=== PATIENT | female | born 1955 | race Caucasian/White ===

== ENCOUNTER 2017-10-14 22:13 | Inpatient (IN) | payer OTHER ==
[~2017-10-14] VITALS: Ht 160 cm; Wt 108.5 kg
[2017-10-14 22:27] VITALS: Ht 160 cm; Wt 108.5 kg
[2017-10-15 00:04] LABS: BASOPHIL % 0.4 % (0-2); PLATELET COUNT 295 x10^3mcL (130-400)
[2017-10-15 00:15] LABS: RED CELL DISTRIBUTION WIDTH 16.8 % (11.5-14.5)
[2017-10-15 00:20] LABS: BILIRUBIN TOTAL 0.5 mg/dL (0.20-1.00); CALCIUM 8.5 mg/dL (8.5-10.1); CARBON DIOXIDE 28.2 mmol/L (21-32); POTASSIUM SERUM 5.1 mmol/L (3.5-5.1)
[2017-10-15 00:22] LABS: ALBUMIN 2.9 g/dL (3.4-5.0)
[2017-10-15 00:29] LABS: C REACTIVE PROTEIN 22.2 mg/dL (<=0.9)
[2017-10-15] MEDS ORDERED: SIMVASTATIN10 M1 PO (00:52)
[2017-10-15] MEDS ORDERED: ZOLOFT25 MG PO (00:52)
[2017-10-15] MEDS ORDERED: PRO30 (00:52)
[2017-10-15 01:30] LABS: ERYTHROCYTE SED RATE 89 mm/hr (0-30)
[2017-10-15 01:51] LABS: T3 TOTAL 0.75 ng/mL
[2017-10-15 02:01] LABS: CHOLESTEROL/HDL RATIO 4.3; MAGNESIUM 2.5 mg/dL (1.8-2.4); PHOSPHOROUS 6.5 mg/dL (2.5-4.9)
[2017-10-15 02:06] LABS: FREE T4 1.15 ng/dL (0.76-1.46); T4(THYROXINE) 5.9 ug/dL (4.7-13.3)
[2017-10-15 03:33] VITALS: BP 154/44
[2017-10-15 08:05] LABS: BASOPHIL % 0.4 % (0-2); PLATELET COUNT 283 x10^3mcL (130-400)
[2017-10-15 08:06] LABS: RED CELL DISTRIBUTION WIDTH 16.8 % (11.5-14.5)
[2017-10-15 08:31] LABS: CARBON DIOXIDE 27.2 mmol/L (21-32); MAGNESIUM 2.4 mg/dL (1.8-2.4); PHOSPHOROUS 7.6 mg/dL (2.5-4.9); POTASSIUM SERUM 4.5 mmol/L (3.5-5.1)
[2017-10-15 09:08] LABS: CREATININE SERUM 6.5 mg/dL (0.6-1.0)
[2017-10-15 09:33] VITALS: BP 103/43
[2017-10-15 13:32] VITALS: BP 147/58
[2017-10-15 17:27] VITALS: BP 145/44
[2017-10-15 21:36] VITALS: BP 146/54
[2017-10-16 05:45] VITALS: BP 139/62
[2017-10-16 07:25] LABS: BASOPHIL % 0.5 % (0-2); CALCIUM 8.8 mg/dL (8.5-10.1); CARBON DIOXIDE 25.9 mmol/L (21-32); MAGNESIUM 2.6 mg/dL (1.8-2.4); PLATELET COUNT 293 x10^3mcL (130-400); POTASSIUM SERUM 5.4 mmol/L (3.5-5.1)
[2017-10-16 07:32] LABS: RED CELL DISTRIBUTION WIDTH 17.1 % (11.5-14.5)
[2017-10-16 07:45] LABS: CREATININE SERUM 8.2 mg/dL (0.6-1.0)
[2017-10-16 09:25] VITALS: BP 131/52
[2017-10-16 13:42] VITALS: BP 133/48
[2017-10-16 16:59] VITALS: BP 128/64
[2017-10-16 20:46] VITALS: BP 115/49
[2017-10-17 05:26] VITALS: BP 147/50
[2017-10-17 06:55] LABS: BASOPHIL % 0.6 % (0-2); PLATELET COUNT 313 x10^3mcL (130-400)
[2017-10-17 07:03] LABS: CALCIUM 8.9 mg/dL (8.5-10.1); CARBON DIOXIDE 26.3 mmol/L (21-32); MAGNESIUM 2.1 mg/dL (1.8-2.4); PHOSPHOROUS 6.6 mg/dL (2.5-4.9); POTASSIUM SERUM 4.7 mmol/L (3.5-5.1)
[2017-10-17 07:05] LABS: RED CELL DISTRIBUTION WIDTH 17.1 % (11.5-14.5)
[2017-10-17 07:06] LABS: CREATININE SERUM 6.3 mg/dL (0.6-1.0)
[2017-10-17 08:41] VITALS: BP 144/53
[2017-10-17 12:40] VITALS: BP 104/61; BP 134/47
[2017-10-17 17:13] VITALS: BP 160/55
[2017-10-17 20:40] VITALS: BP 152/49
[2017-10-18 05:05] VITALS: BP 148/52
[2017-10-18 06:39] LABS: BASOPHIL % 0.6 % (0-2); PLATELET COUNT 297 x10^3mcL (130-400)
[2017-10-18 06:49] LABS: CALCIUM 8.8 mg/dL (8.5-10.1); CARBON DIOXIDE 23.8 mmol/L (21-32); MAGNESIUM 2.2 mg/dL (1.8-2.4); PHOSPHOROUS 8.6 mg/dL (2.5-4.9); POTASSIUM SERUM 5.1 mmol/L (3.5-5.1)
[2017-10-18 06:52] LABS: CREATININE SERUM 7.7 mg/dL (0.6-1.0)
[2017-10-18 07:08] LABS: RED CELL DISTRIBUTION WIDTH 16.6 % (11.5-14.5)
[2017-10-18 09:20] VITALS: BP 136/60
[2017-10-18 13:33] VITALS: BP 169/46
[2017-10-18 17:13] VITALS: BP 155/44
[2017-10-18 20:20] VITALS: BP 153/54
[2017-10-18 22:00] VITALS: BP 168/57
[2017-10-19 05:57] VITALS: BP 163/55
[2017-10-19 06:50] LABS: BASOPHIL % 0.7 % (0-2); PLATELET COUNT 288 x10^3mcL (130-400)
[2017-10-19 07:00] LABS: RED CELL DISTRIBUTION WIDTH 16.7 % (11.5-14.5)
[2017-10-19 07:30] LABS: BILIRUBIN TOTAL 0.4 mg/dL (0.20-1.00); CALCIUM 7.8 mg/dL (8.5-10.1); CARBON DIOXIDE 18.2 mmol/L (21-32); MAGNESIUM 2.4 mg/dL (1.8-2.4); TOTAL PROTEIN, SERUM 6.4 g/dL (6.4-8.2)
[2017-10-19 07:57] LABS: ALBUMIN 2.5 g/dL (3.4-5.0)
[2017-10-19 07:58] LABS: CREATININE SERUM 9.7 mg/dL (0.6-1.0); POTASSIUM SERUM 6.1 mmol/L (3.5-5.1)
[2017-10-19 09:35] VITALS: BP 159/48
[2017-10-19 13:13] VITALS: BP 122/43
[2017-10-19 16:05] VITALS: BP 170/51
[2017-10-19 19:45] VITALS: BP 139/43
[2017-10-20 05:50] VITALS: BP 150/47
[2017-10-20 06:30] LABS: BASOPHIL % 0.5 % (0-2); PLATELET COUNT 273 x10^3mcL (130-400)
[2017-10-20 06:35] LABS: RED CELL DISTRIBUTION WIDTH 16.5 % (11.5-14.5)
[2017-10-20 06:37] LABS: BILIRUBIN TOTAL 0.47 mg/dL (0.20-1.00); CALCIUM 8.6 mg/dL (8.5-10.1); CARBON DIOXIDE 29.4 mmol/L (21-32); PHOSPHOROUS 7.5 mg/dL (2.5-4.9); POTASSIUM SERUM 5.3 mmol/L (3.5-5.1); TOTAL PROTEIN, SERUM 6.9 g/dL (6.4-8.2)
[2017-10-20 06:41] LABS: ALBUMIN 2.3 g/dL (3.4-5.0)
[2017-10-20 10:37] VITALS: BP 183/48
[2017-10-20] MEDS ORDERED: LAC PO (12:52)
[2017-10-20] MEDS ORDERED: COL100 PO (12:53)
[2017-10-20] MEDS ORDERED: SERTRALINE50 M1 PO (12:54)
[2017-10-20] MEDS ORDERED: TYL325 PO (12:54)
[2017-10-20] MEDS ORDERED: ADA30 PO (12:55)
[2017-10-20] MEDS ORDERED: ATORVASTATIN CA40 M1 PO (12:56)
[2017-10-20 13:15] VITALS: BP 172/55; BP 177/66; BP 183/48
[2017-10-20 14:05] VITALS: BP 177/66
[2017-10-20 16:05] VITALS: BP 172/55
[2017-10-20 17:57] VITALS: BP 174/45
== END 2017-10-20 18:18 | disposition left against medical advice (07) | DRG 853 ==
LOC: ED 22:13 → DU 10-15 00:49
PROVIDERS: Emergency Medicine; Family Medicine; General Practice; Internal Medicine Nephrology; Podiatrist Foot & Ankle Surgery
PROC: 0Y6W0Z1 Detachment at Left 4th Toe, High, Open Approach (ICD-10-PCS; principal; 2017-10-18 07:30)
DX: A41.9 Sepsis, unspecified organism (principal); N18.6 End stage renal disease; N17.0 Acute kidney failure with tubular necrosis; I21.A1 Myocardial infarction type 2; Z68.41 Body mass index [BMI] 40.0-44.9, adult; E11.52 Type 2 diabetes mellitus with diabetic peripheral angiopathy with gangrene; I96 Gangrene, not elsewhere classified; D68.9 Coagulation defect, unspecified; E11.65 Type 2 diabetes mellitus with hyperglycemia; B95.61 Methicillin susceptible Staphylococcus aureus infection as the cause of diseases classified elsewhere; I44.0 Atrioventricular block, first degree; I10 Essential (primary) hypertension; E83.41 Hypermagnesemia; E83.39 Other disorders of phosphorus metabolism; E78.5 Hyperlipidemia, unspecified; F32.9 Major depressive disorder, single episode, unspecified; Z99.2 Dependence on renal dialysis; Z89.411 Acquired absence of right great toe; Z89.421 Acquired absence of other right toe(s)
CPT/HCPCS: 83880; 84439; 94150; 97535-GP; J2405; J2543; J2704; J3010; J3370; J3490; J7030; Q0092

== ENCOUNTER 2018-01-29 02:36 | Inpatient (IN) | payer OTHER ==
[~2018-01-29] VITALS: Ht 160 cm; Wt 99.8 kg
[~2018-01-29 02:36] MED LIST: ADA30 PO; ATORVASTATIN CA40 M1 PO; COL100 PO; LAC PO; PRO30; SERTRALINE50 M1 PO; SIMVASTATIN10 M1 PO; TYL325 PO
[2018-01-29 02:44] VITALS: Ht 160 cm; Wt 99.8 kg
[2018-01-29 03:44] LABS: PLATELET COUNT 363 x10^3mcL (130-400)
[2018-01-29 03:48] LABS: RED CELL DISTRIBUTION WIDTH 19.4 % (11.5-14.5)
[2018-01-29 04:18] LABS: BILIRUBIN TOTAL 0.4 mg/dL (0.20-1.00); C REACTIVE PROTEIN 7.3 mg/dL (<=0.9); CALCIUM 9.3 mg/dL (8.5-10.1); CARBON DIOXIDE 32.3 mmol/L (21-32); POTASSIUM SERUM 4.6 mmol/L (3.5-5.1); TOTAL PROTEIN, SERUM 8.1 g/dL (6.4-8.2)
[2018-01-29 04:20] LABS: ALBUMIN 2.8 g/dL (3.4-5.0)
[2018-01-29 04:24] LABS: CREATININE SERUM 6.5 mg/dL (0.6-1.0); ERYTHROCYTE SED RATE 83 mm/hr (0-30)
[2018-01-29 04:29] LABS: BAND NEUTROPHIL 4 % (0-10); METAMYELOCTE 2 % (0-2); MONOCYTE 2 % (0-7); MYELOCYTE 1 % (0-2); SEGMENTED NEUTROPHILS 73 % (37-75)
[2018-01-29 04:35] LABS: PLATELET MORPHOLOGY LARGE PLATELET SEEN
[2018-01-29 04:37] LABS: rbc morphology (normal/abnorm) ABNORMAL (NORMAL)
[2018-01-29] MEDS ORDERED: ELIQUIS2.5 MG PO (04:58)
[2018-01-29 06:35] VITALS: BP 152/43
[2018-01-29 06:52] LABS: T3 TOTAL 1.07 ng/mL
[2018-01-29 08:04] LABS: MAGNESIUM 2.5 mg/dL (1.8-2.4); PHOSPHOROUS 4.1 mg/dL (2.5-4.9)
[2018-01-29 08:11] LABS: FREE T4 1.18 ng/dL (0.76-1.46); FREE THYROXINE INDEX 2.5 ug/dL (1.4-4.5); T4(THYROXINE) 7.4 ug/dL (4.7-13.3)
[2018-01-29 08:12] LABS: CHOLESTEROL/HDL RATIO 2.8
[2018-01-29 09:00] VITALS: BP 139/42
[2018-01-29 09:04] LABS: IRON 18 ug/dL (50-170); TOTAL IRON BINDING CAPACITY 151 ug/dL (250-450)
[2018-01-29 10:36] LABS: RED BLOOD CELLS 3.71 M/mm3 (4.10-5.10)
[2018-01-29 16:45] VITALS: BP 139/74
[2018-01-29 21:01] VITALS: BP 136/45
[2018-01-30 05:57] VITALS: BP 127/31
[2018-01-30 06:14] LABS: PLATELET COUNT 322 x10^3mcL (130-400)
[2018-01-30 06:31] LABS: CALCIUM 8.6 mg/dL (8.5-10.1); CARBON DIOXIDE 31.4 mmol/L (21-32); POTASSIUM SERUM 4.8 mmol/L (3.5-5.1)
[2018-01-30 06:32] LABS: PHOSPHOROUS 4.5 mg/dL (2.5-4.9)
[2018-01-30 06:50] LABS: CREATININE SERUM 4.7 mg/dL (0.6-1.0)
[2018-01-30 07:16] LABS: RED CELL DISTRIBUTION WIDTH 19.8 % (11.5-14.5)
[2018-01-30 09:39] VITALS: BP 139/44
[2018-01-30 14:11] LABS: BAND NEUTROPHIL 11 % (0-10); MONOCYTE 7 % (0-7); SEGMENTED NEUTROPHILS 71 % (37-75)
[2018-01-30 14:12] LABS: rbc morphology (normal/abnorm) ABNORMAL (NORMAL); target cell (codocyte) 1+
[2018-01-30 14:13] LABS: PLATELET MORPHOLOGY LARGE PLATELET SEEN
[2018-01-30 14:52] LABS: ATYPICAL LYMPH 0 %
[2018-01-30 16:34] VITALS: BP 144/34
[2018-01-30 20:43] VITALS: BP 123/33
[2018-01-31 05:42] VITALS: BP 136/40; BP 136/68
[2018-01-31 08:37] LABS: MAGNESIUM 2.2 mg/dL (1.8-2.4); PHOSPHOROUS 5.6 mg/dL (2.5-4.9); POTASSIUM SERUM 4.8 mmol/L (3.5-5.1)
[2018-01-31 08:38] LABS: PLATELET COUNT 327 x10^3mcL (130-400)
[2018-01-31 08:40] LABS: RED CELL DISTRIBUTION WIDTH 19.2 % (11.5-14.5)
[2018-01-31 08:54] LABS: CREATININE SERUM 6.4 mg/dL (0.6-1.0)
[2018-01-31 09:30] VITALS: BP 117/36
[2018-01-31 11:09] LABS: BAND NEUTROPHIL 2 % (0-10); BASOPHIL 0 % (0-2); MONOCYTE 2 % (0-7); SEGMENTED NEUTROPHILS 81 % (37-75)
[2018-01-31 11:10] LABS: rbc morphology (normal/abnorm) ABNORMAL (NORMAL)
[2018-01-31 11:11] LABS: PLATELET MORPHOLOGY PLATELETS NORMAL
[2018-01-31 17:16] VITALS: BP 134/59
[2018-01-31 20:40] VITALS: BP 113/31
[2018-01-31 20:41] VITALS: BP 110/29
[2018-02-01 06:21] VITALS: BP 150/46
[2018-02-01 06:57] LABS: BASOPHIL % 1.2 % (0-2); PLATELET COUNT 326 x10^3mcL (130-400)
[2018-02-01 06:59] LABS: RED CELL DISTRIBUTION WIDTH 20.3 % (11.5-14.5)
[2018-02-01 07:25] LABS: CALCIUM 8.7 mg/dL (8.5-10.1); CARBON DIOXIDE 30.3 mmol/L (21-32); POTASSIUM SERUM 4.2 mmol/L (3.5-5.1)
[2018-02-01 07:32] LABS: CREATININE SERUM 5.4 mg/dL (0.6-1.0)
[2018-02-01 09:05] VITALS: BP 147/47
[2018-02-01] MEDS ORDERED: DUL10S RC (11:38)
[2018-02-01 13:00] VITALS: BP 147/47
[2018-02-01] MEDS ORDERED: ZOLOFT25 MG PO (13:28)
[2018-02-01 17:00] VITALS: BP 150/48
== END 2018-02-01 18:48 | disposition home or self-care (01) | DRG 391 ==
LOC: ED 02:36 → MU 04:51
PROVIDERS: Emergency Medicine; Internal Medicine; Specialist
DX: K52.9 Noninfective gastroenteritis and colitis, unspecified (principal); N17.0 Acute kidney failure with tubular necrosis; N18.6 End stage renal disease; I12.0 Hypertensive chronic kidney disease with stage 5 chronic kidney disease or end stage renal disease; L97.829 Non-pressure chronic ulcer of other part of left lower leg with unspecified severity; B95.62 Methicillin resistant Staphylococcus aureus infection as the cause of diseases classified elsewhere; E11.622 Type 2 diabetes mellitus with other skin ulcer; E87.79 Other fluid overload; E11.22 Type 2 diabetes mellitus with diabetic chronic kidney disease; E11.65 Type 2 diabetes mellitus with hyperglycemia; E11.51 Type 2 diabetes mellitus with diabetic peripheral angiopathy without gangrene; Z68.38 Body mass index [BMI] 38.0-38.9, adult; Z99.2 Dependence on renal dialysis; Z89.512 Acquired absence of left leg below knee; Z89.411 Acquired absence of right great toe; Z89.421 Acquired absence of other right toe(s); Z16.24 Resistance to multiple antibiotics
CPT/HCPCS: 82962; 83880; 84439; 87046; 87046-59; A4719; J2270; J2405; J2543; J3370; J3490; J7030; J7040; Q0092; Q9967

== ENCOUNTER 2018-02-10 21:45 | Inpatient (IN) | payer OTHER ==
[~2018-02-10] VITALS: Ht 160 cm; Wt 103.2 kg
[~2018-02-10 21:45] MED LIST changes: +DUL10S RC; +ELIQUIS2.5 MG PO; +ZOLOFT25 MG PO
[2018-02-10 23:24] LABS: PLATELET COUNT 412 x10^3mcL (130-400); RED CELL DISTRIBUTION WIDTH 21.1 % (11.5-14.5)
[2018-02-10 23:34] LABS: BILIRUBIN TOTAL 0.4 mg/dL (0.20-1.00); CALCIUM 8.5 mg/dL (8.5-10.1); CARBON DIOXIDE 28.4 mmol/L (21-32); POTASSIUM SERUM 4.1 mmol/L (3.5-5.1); TOTAL PROTEIN, SERUM 6.9 g/dL (6.4-8.2)
[2018-02-10 23:41] LABS: ALBUMIN 2.5 g/dL (3.4-5.0)
[2018-02-10 23:49] LABS: CREATININE SERUM 7.2 mg/dL (0.6-1.0)
[2018-02-11 00:07] LABS: BAND NEUTROPHIL 3 % (0-10); MONOCYTE 4 % (0-7); SEGMENTED NEUTROPHILS 77 % (37-75)
[2018-02-11 00:10] LABS: PLATELET MORPHOLOGY FEW LARGE PLATELET; rbc morphology (normal/abnorm) ABNORMAL (NORMAL); target cell (codocyte) 1+; tear drop cell (dacryocyte) 1+
[2018-02-11 02:11] LABS: MAGNESIUM 2.3 mg/dL (1.8-2.4); PHOSPHOROUS 6.4 mg/dL (2.5-4.9)
[2018-02-11 02:20] LABS: FREE T4 1.03 ng/dL (0.76-1.46); FREE THYROXINE INDEX 2.3 ug/dL (1.4-4.5); T4(THYROXINE) 6.8 ug/dL (4.7-13.3)
[2018-02-11 02:47] LABS: T3 TOTAL 0.91 ng/mL
[2018-02-11 03:08] VITALS: BP 154/52
[2018-02-11 06:32] LABS: CALCIUM 8.1 mg/dL (8.5-10.1); CARBON DIOXIDE 28.7 mmol/L (21-32); POTASSIUM SERUM 4.4 mmol/L (3.5-5.1)
[2018-02-11 06:33] LABS: PLATELET COUNT 372 x10^3mcL (130-400)
[2018-02-11 06:34] VITALS: BP 144/50
[2018-02-11 06:54] LABS: CREATININE SERUM 7.6 mg/dL (0.6-1.0); RED CELL DISTRIBUTION WIDTH 20.8 % (11.5-14.5)
[2018-02-11 09:11] VITALS: BP 145/40
[2018-02-11 10:25] LABS: BAND NEUTROPHIL 5 % (0-10); BASOPHIL 0 % (0-2); MONOCYTE 5 % (0-7); SEGMENTED NEUTROPHILS 71 % (37-75)
[2018-02-11 10:26] LABS: rbc morphology (normal/abnorm) ABNORMAL (NORMAL)
[2018-02-11 10:27] LABS: target cell (codocyte) 1+; tear drop cell (dacryocyte) 1+
[2018-02-11 17:00] VITALS: BP 165/52
[2018-02-11 20:23] VITALS: BP 180/78
[2018-02-11 22:08] VITALS: BP 149/61
[2018-02-12 01:25] VITALS: BP 154/40
[2018-02-12 05:00] VITALS: BP 157/52
[2018-02-12 06:37] LABS: BASOPHIL % 0.4 % (0-2)
[2018-02-12 06:38] LABS: CALCIUM 8.3 mg/dL (8.5-10.1); CARBON DIOXIDE 28.9 mmol/L (21-32); MAGNESIUM 1.9 mg/dL (1.8-2.4); PHOSPHOROUS 4.3 mg/dL (2.5-4.9); POTASSIUM SERUM 3.6 mmol/L (3.5-5.1)
[2018-02-12 06:39] LABS: CREATININE SERUM 5.4 mg/dL (0.6-1.0)
[2018-02-12 07:08] LABS: PLATELET COUNT 424 x10^3mcL (130-400); RED CELL DISTRIBUTION WIDTH 19.4 % (11.5-14.5)
[2018-02-12 09:43] VITALS: BP 139/50
[2018-02-12 11:40] VITALS: BP 109/54
[2018-02-12 18:44] VITALS: BP 163/64
[2018-02-12 20:41] VITALS: BP 165/41
[2018-02-13 02:34] VITALS: BP 148/40
[2018-02-13 05:31] VITALS: BP 172/52
[2018-02-13 06:48] LABS: BASOPHIL % 0.9 % (0-2); PLATELET COUNT 373 x10^3mcL (130-400)
[2018-02-13 07:13] LABS: RED CELL DISTRIBUTION WIDTH 20.9 % (11.5-14.5)
[2018-02-13 07:22] LABS: CALCIUM 8.7 mg/dL (8.5-10.1)
[2018-02-13 07:27] LABS: CREATININE SERUM 5.7 mg/dL (0.6-1.0)
[2018-02-13] MEDS ORDERED: LEVOFLOXACIN500 M1 PO (13:51)
[2018-02-14 08:55] VITALS: Ht 160 cm; Wt 103.2 kg
== END 2018-02-13 18:32 | disposition home health service (06) | DRG 871 ==
LOC: ED 21:45 → MU 02-11 00:52
PROVIDERS: Emergency Medicine; Internal Medicine; Internal Medicine Gastroenterology
PROC: 0DBF8ZZ Excision of Right Large Intestine, Via Natural or Artificial Opening Endoscopic (ICD-10-PCS; principal; 2018-02-13 08:30)
PROC: 0DBF8ZX Excision of Right Large Intestine, Via Natural or Artificial Opening Endoscopic, Diagnostic (ICD-10-PCS; 2018-02-13 08:30)
DX: A41.9 Sepsis, unspecified organism (principal); N18.6 End stage renal disease; E43 Unspecified severe protein-calorie malnutrition; N17.0 Acute kidney failure with tubular necrosis; I12.0 Hypertensive chronic kidney disease with stage 5 chronic kidney disease or end stage renal disease; D62 Acute posthemorrhagic anemia; E11.22 Type 2 diabetes mellitus with diabetic chronic kidney disease; K59.01 Slow transit constipation; K63.5 Polyp of colon; E65 Localized adiposity; Z99.2 Dependence on renal dialysis; Z89.411 Acquired absence of right great toe; Z89.421 Acquired absence of other right toe(s); Z89.512 Acquired absence of left leg below knee
CPT/HCPCS: 45378; 82962; 83880; 84439; J0360; J1200; J1610; J1956; J2250; J2310; J2405; J2543; J3010; J3490; J7030; Q0092

== ENCOUNTER 2018-02-16 11:12 | Emergency (ER) | payer OTHER ==
[~2018-02-16 11:12] MED LIST changes: +LEVOFLOXACIN500 M1 PO
[2018-02-16 11:28] VITALS: Ht 160 cm
[2018-02-16 12:28] LABS: PLATELET COUNT 364 x10^3mcL (130-400)
[2018-02-16 12:29] LABS: RED CELL DISTRIBUTION WIDTH 21.3 % (11.5-14.5)
[2018-02-16 12:37] LABS: BILIRUBIN TOTAL 0.4 mg/dL (0.20-1.00); CALCIUM 8.8 mg/dL (8.5-10.1); CARBON DIOXIDE 33.7 mmol/L (21-32); POTASSIUM SERUM 4.9 mmol/L (3.5-5.1)
[2018-02-16 12:42] LABS: CREATININE SERUM 6.7 mg/dL (0.6-1.0)
[2018-02-16 13:23] VITALS: BP 142/112
[2018-02-16 13:37] LABS: BAND NEUTROPHIL 9 % (0-10); BASOPHIL 0 % (0-2); MONOCYTE 7 % (0-7); SEGMENTED NEUTROPHILS 72 % (37-75)
[2018-02-16 13:39] LABS: PLATELET MORPHOLOGY GIANT PLATELET SEEN; rbc morphology (normal/abnorm) ABNORMAL (NORMAL); schistocyte (helmet cell) 1+; target cell (codocyte) 1+
== END 2018-02-16 13:23 | disposition short-term general hospital (02) ==
LOC: ED 11:12
PROVIDERS: Emergency Medicine
DX: I21.3 ST elevation (STEMI) myocardial infarction of unspecified site (principal); E11.22 Type 2 diabetes mellitus with diabetic chronic kidney disease; I12.9 Hypertensive chronic kidney disease with stage 1 through stage 4 chronic kidney disease, or unspecified chronic kidney disease; N18.9 Chronic kidney disease, unspecified; E78.5 Hyperlipidemia, unspecified; Z99.2 Dependence on renal dialysis
CPT/HCPCS: J2765; J3010; Q0092

== ENCOUNTER 2018-05-07 11:54 | Inpatient (IN) | payer OTHER ==
[~2018-05-07] VITALS: Ht 160 cm; Wt 97.1 kg
[2018-05-07 12:30] LABS: PLATELET COUNT 365 x10^3mcL (130-400)
[2018-05-07 12:36] LABS: BASOPHIL % 2.2 % (0-2); CALCIUM 9.5 mg/dL (8.5-10.1); CARBON DIOXIDE 36.4 mmol/L (21-32); CREATININE SERUM 3.6 mg/dL (0.6-1.0); POTASSIUM SERUM 3.9 mmol/L (3.5-5.1); RED CELL DISTRIBUTION WIDTH 17.1 % (11.5-14.5)
[2018-05-07 12:41] LABS: BILIRUBIN TOTAL 0.45 mg/dL (0.20-1.00)
[2018-05-07 12:54] LABS: TOTAL PROTEIN, SERUM 8.6 g/dL (6.4-8.2)
[2018-05-07] MEDS ORDERED: ASPIRIN CHILDRE81 MG PO (14:09)
[2018-05-07] MEDS ORDERED: ELIQUIS5 M1 PO (14:09)
[2018-05-07] MEDS ORDERED: LANTUS SOLOS100 U/M1 (14:09)
[2018-05-07] MEDS ORDERED: NIFEDIPINE30 MG (14:10)
[2018-05-07 16:28] LABS: MAGNESIUM 2.5 mg/dL (1.8-2.4); PHOSPHOROUS 2.2 mg/dL (2.5-4.9)
[2018-05-07 16:38] LABS: CHOLESTEROL/HDL RATIO 2.3
[2018-05-07 19:43] VITALS: BP 97/39
[2018-05-07 19:50] VITALS: Ht 160 cm; Wt 97.1 kg
[2018-05-07 23:32] VITALS: BP 97/39
[2018-05-08 06:19] VITALS: BP 149/44
[2018-05-08 06:47] LABS: BASOPHIL % 0.2 % (0-2); PLATELET COUNT 294 x10^3mcL (130-400)
[2018-05-08 06:54] LABS: RED CELL DISTRIBUTION WIDTH 17.4 % (11.5-14.5)
[2018-05-08 07:45] LABS: CALCIUM 8.9 mg/dL (8.5-10.1); CARBON DIOXIDE 33.5 mmol/L (21-32); MAGNESIUM 2.4 mg/dL (1.8-2.4); PHOSPHOROUS 3.8 mg/dL (2.5-4.9); POTASSIUM SERUM 4.3 mmol/L (3.5-5.1)
[2018-05-08 08:01] LABS: CREATININE SERUM 5.4 mg/dL (0.6-1.0)
[2018-05-08 09:12] VITALS: BP 156/47
[2018-05-08 13:57] VITALS: BP 143/49
[2018-05-08 16:25] VITALS: BP 145/49
[2018-05-08 21:41] VITALS: BP 100/49
[2018-05-09 05:33] VITALS: BP 144/31
[2018-05-09 06:43] LABS: BASOPHIL % 0.1 % (0-2); PLATELET COUNT 231 x10^3mcL (130-400)
[2018-05-09 06:44] LABS: RED CELL DISTRIBUTION WIDTH 17.5 % (11.5-14.5)
[2018-05-09 06:47] LABS: CALCIUM 8.1 mg/dL (8.5-10.1); CARBON DIOXIDE 32.6 mmol/L (21-32); MAGNESIUM 2.4 mg/dL (1.8-2.4); PHOSPHOROUS 4.7 mg/dL (2.5-4.9); POTASSIUM SERUM 4.6 mmol/L (3.5-5.1)
[2018-05-09 06:58] LABS: CREATININE SERUM 7.4 mg/dL (0.6-1.0)
[2018-05-09 09:49] VITALS: BP 145/40
[2018-05-09 13:51] VITALS: BP 142/73
[2018-05-09 16:59] VITALS: BP 139/46
[2018-05-09 21:12] VITALS: BP 126/54
[2018-05-10] VITALS (7 sets, daily range): BP systolic 108–160; BP diastolic 38–67
[2018-05-10 06:54] LABS: BASOPHIL % 0.2 % (0-2); PLATELET COUNT 230 x10^3mcL (130-400)
[2018-05-10 06:56] LABS: RED CELL DISTRIBUTION WIDTH 17.4 % (11.5-14.5)
[2018-05-10 07:20] LABS: CALCIUM 7.8 mg/dL (8.5-10.1); CARBON DIOXIDE 28.1 mmol/L (21-32); POTASSIUM SERUM 4.8 mmol/L (3.5-5.1)
[2018-05-11 05:41] VITALS: BP 135/59
[2018-05-11 06:33] LABS: CALCIUM 7.9 mg/dL (8.5-10.1); CARBON DIOXIDE 32.9 mmol/L (21-32); POTASSIUM SERUM 4.2 mmol/L (3.5-5.1)
[2018-05-11 06:35] LABS: CREATININE SERUM 6.5 mg/dL (0.6-1.0)
[2018-05-11 07:05] LABS: BASOPHIL % 0.6 % (0-2); PLATELET COUNT 203 x10^3mcL (130-400); RED CELL DISTRIBUTION WIDTH 18.4 % (11.5-14.5)
[2018-05-11 09:40] VITALS: BP 108/51
[2018-05-11 13:33] VITALS: BP 149/55
[2018-05-11 17:00] VITALS: BP 125/49
[2018-05-11 21:18] VITALS: BP 99/41
[2018-05-12 04:51] VITALS: BP 106/41
[2018-05-12 06:18] LABS: CALCIUM 8.2 mg/dL (8.5-10.1); CARBON DIOXIDE 29.8 mmol/L (21-32); POTASSIUM SERUM 4.1 mmol/L (3.5-5.1)
[2018-05-12 07:02] LABS: BASOPHIL % 0.1 % (0-2); PLATELET COUNT 179 x10^3mcL (130-400); RED CELL DISTRIBUTION WIDTH 18.8 % (11.5-14.5)
[2018-05-12 07:57] VITALS: BP 107/55
[2018-05-12 12:22] VITALS: BP 109/53
[2018-05-12 17:16] VITALS: BP 118/52
[2018-05-12 20:28] VITALS: BP 115/55
[2018-05-13 06:02] VITALS: BP 139/57
[2018-05-13 09:23] VITALS: BP 134/68
[2018-05-13 14:20] VITALS: BP 99/52
[2018-05-13] MEDS ORDERED: LEVOFLOXACIN500 M1 PO (15:01)
[2018-05-13 16:02] VITALS: BP 121/55
[2018-05-13 21:47] VITALS: BP 115/55
[2018-05-14 05:21] VITALS: BP 139/43
[2018-05-14 07:34] VITALS: BP 112/61
[2018-05-14 12:12] VITALS: BP 137/88
== END 2018-05-14 14:45 | disposition home health service (06) | DRG 871 ==
LOC: ED 11:54 → DU 17:21
PROVIDERS: Emergency Medicine; Family Medicine; ADMIT Internal Medicine
DX: A41.9 Sepsis, unspecified organism (principal); J15.9 Unspecified bacterial pneumonia; N17.0 Acute kidney failure with tubular necrosis; N18.6 End stage renal disease; I13.2 Hypertensive heart and chronic kidney disease with heart failure and with stage 5 chronic kidney disease, or end stage renal disease; E87.1 Hypo-osmolality and hyponatremia; E11.22 Type 2 diabetes mellitus with diabetic chronic kidney disease; E11.51 Type 2 diabetes mellitus with diabetic peripheral angiopathy without gangrene; E11.65 Type 2 diabetes mellitus with hyperglycemia; I50.9 Heart failure, unspecified; I48.0 Paroxysmal atrial fibrillation; I25.10 Atherosclerotic heart disease of native coronary artery without angina pectoris; E83.39 Other disorders of phosphorus metabolism; D63.1 Anemia in chronic kidney disease; E66.9 Obesity, unspecified; Z68.38 Body mass index [BMI] 38.0-38.9, adult; Z95.5 Presence of coronary angioplasty implant and graft; Z79.01 Long term (current) use of anticoagulants; Z79.82 Long term (current) use of aspirin; Z99.2 Dependence on renal dialysis; Z79.4 Long term (current) use of insulin; Z89.421 Acquired absence of other right toe(s); Z89.512 Acquired absence of left leg below knee; Z99.3 Dependence on wheelchair; Z79.84 Long term (current) use of oral hypoglycemic drugs
CPT/HCPCS: 36600; 82962; 83880; 87804; 94150; 97110-GP; 97530-GP; A9500; J0132; J0456; J0696; J0885-EC; J2405; J2543; J2785; J7030; J7040; J7050; J7620; Q0092

== ENCOUNTER 2018-05-20 22:58 | Inpatient (IN) | payer OTHER ==
[~2018-05-20] VITALS: Ht 160 cm; Wt 91.2 kg
[~2018-05-20 22:58] MED LIST changes: +ASPIRIN CHILDRE81 MG PO; +ELIQUIS5 M1 PO; +LANTUS SOLOS100 U/M1; +NIFEDIPINE30 MG
--- NOTE | 2018-05-20 23:50 | NUR ---
PT PRESENTS TO ER TODAY WITH C/O OF DIARRHEA THAT STARTED THIS MORNING. PT STATES THAT SHE WAS D/C FROM HERE LAST WEDNESDAY AND PRESCRIBED LEVOFLOXACIN FOR A DX OF PNEUMONIA. PT STATES SINCE THIS MORNING SHE HAS HAD APPROX 20 EPISODES OF DIARRHEA WITH SMALL OF AMOUNT OF BLOOD IN SOME OF HER STOOL. PT ALSO REPORTING AN ACHING ABD PAIN IN THE MUQ. PT RATES HER PAIN A 9/10. PT REPORTS NAUSEA BUT DENIES ANY VOMITING. PT IS A/O X4. RESP EQUAL AND UNLABORED. NO ACUTE DISTRESS NOTED.
--- NOTE | 2018-05-21 00:30 | NUR ---
TWO ATTEMPTS TO START IV IN THE R ARM BY MYSELF JOSE MARTIN CHANDLER.
--- NOTE | 2018-05-21 00:35 | NUR ---
LAB AT PT SIDE FOR BLOOD DRAW.
--- NOTE | 2018-05-21 00:45 | NUR ---
GERALDINE MARKS AT BEDSIDE TO START IV.
--- NOTE | 2018-05-21 01:07 | NUR ---
GERALDINE AGGARWAL AT BEDSIDE TO ATTEMPT IV START.
--- NOTE | 2018-05-21 01:20 | NUR ---
MULTIPLE UNSUCCESSFUL IV ATTEMPTS. MD AWARE OF DIFFICULTY WITH IV ACCESS. OBTAINED RN GISELLA TO ATTEMPT.
--- NOTE | 2018-05-21 01:24 | NUR ---
GERALDINE GISELLA AT BEDSIDE TO ATTEMPT IV START.
--- NOTE | 2018-05-21 01:24 | NUR ---
GERALDINE OBANDO AT BEDSIDE TO ATTMEPT IV START.
--- NOTE | 2018-05-21 03:00 | NUR ---
0300 MD TRAORE AT BEDSIDE WITH PORTABLE US TO ATTEMPT IV START. 0305 MD TRAORE UNSUCCESSFUL AT IV START, ONLY 1 ATTEMPT MADE.
--- NOTE | 2018-05-21 03:20 | NUR ---
MD TRAORE STARTED IO 25MM 15G IN THE R LOWER LEG.
[2018-05-21] MEDS ORDERED: GABAPENTIN600 M1 PO (03:59)
[2018-05-21] MEDS ORDERED: AURYXIA1 GM PO (03:59)
[2018-05-21] MEDS ORDERED: REG5 PO (03:59)
[2018-05-21 04:15] LABS: BASOPHIL % 0.5 % (0-2); PLATELET COUNT 323 x10^3mcL (130-400)
[2018-05-21 04:17] LABS: RED CELL DISTRIBUTION WIDTH 20.4 % (11.5-14.5)
[2018-05-21 04:33] LABS: rbc morphology (normal/abnorm) ABNORMAL (NORMAL)
[2018-05-21 05:13] LABS: BILIRUBIN TOTAL 0.57 mg/dL (0.20-1.00); CALCIUM 9.7 mg/dL (8.5-10.1); CARBON DIOXIDE 29.5 mmol/L (21-32); POTASSIUM SERUM 3.7 mmol/L (3.5-5.1); TOTAL PROTEIN, SERUM 7.9 g/dL (6.4-8.2)
[2018-05-21 05:16] LABS: ALBUMIN 2.9 g/dL (3.4-5.0)
[2018-05-21 05:17] LABS: CREATININE SERUM 8.3 mg/dL (0.6-1.0)
--- NOTE | 2018-05-21 05:25 | NUR ---
REPORT GIVEN TO CITLALLI TO ASSUME CARE OF PT.
[2018-05-21 06:38] LABS: CHOLESTEROL/HDL RATIO 4.2; MAGNESIUM 2.8 mg/dL (1.8-2.4); PHOSPHOROUS 4.5 mg/dL (2.5-4.9)
[2018-05-21 06:40] VITALS: BP 125/58
[2018-05-21 06:46] LABS: FREE T4 1.12 ng/dL (0.76-1.46); FREE THYROXINE INDEX 2.4 ug/dL (1.4-4.5); T4(THYROXINE) 6.8 ug/dL (4.7-13.3)
--- NOTE | 2018-05-21 06:55 | NUR ---
RECIEVED PT FROM ER VIA GUERNEY IN NO ACUTE DISTRESS. PLACED ON TELE #13, SR. LUNGS CONGESTED TO BILAT UPPER LOBES, ON NC @ 2L. C/O WATERY BM "X 20" PT AOX4. LEFT BKA, R FOOT GREAT TOE, 2ND AND 3RD TOE AMP. AV SHUNT TO LUE. HD T/TH/SAT. INTRA OSS TO R TIBIA, PATENT AND INFUSING. REDNESS TO BUTTOCKS, PICTURE IN CHART, AND REDNESS TO GROIN. Z GUARD APPLIED, SEAM SEWER. ORIENTED TO ROOM. BED IN LOWEST POSITION, 2 SIDE RAILS UP, CALL LIGHT IN REACH. INSTRUCTED TO CALL FOR ASSISTANCE.
[2018-05-21 07:00] LABS: T3 TOTAL 0.78 ng/mL
[2018-05-21 08:12] VITALS: BP 105/46
--- NOTE | 2018-05-21 09:00 | NUR ---
SEEN AAOX4. NO SOB NOTED ON 2LPM N/C. TELE#13 NSR. DENIES PAIN. NO EDEMA NOTED. LEFT BKA, RIGHT GREAT TOE, RIGHT 2ND TOE, RIGHT 3RD TOE AMPUTATION, DRY, DONOVAN. ABLE TO REPOSITION SELF IN BED NOTED. WHEELCHAIR BOUND. REDNESS TO BUTTOCKS AND GROIN AREA, Z GUARD APPLIED. S/L TO RIGHT TIBIA INTRA OSS, PATENT AND INTACT. AV SHUNT TO JAZZ WITH(+)BRUIT/THRILL. ESRD, ANURIA, HD T-TH-SAT. PLAN OF CARE INFORMED, CALL LIGHT PLACED WITHIN EASY REACH. SIDERAILS UP X2.
--- NOTE | 2018-05-21 11:30 | NUR ---
IV CATH#24 INSERTED TO RIGHT SHOULDER BY GERALDINE BENEDICT, GOOD BLD RETURNED AND FLUSHED WELL, DRSG INTACT.
[2018-05-21 11:56] VITALS: BP 106/55
--- NOTE | 2018-05-21 12:02 | NUR ---
MORPHINE 4MG IVP SLOWLY GIVEN PRIOR TO RIGHT TIBIA INTRA OSS REMOVAL. NO ADVERSE REACTION NOTED.
--- NOTE | 2018-05-21 12:15 | NUR ---
RIGHT TIBIA INTRA OSS REMOVED BY DOWEL MAKER JANE AT BEDSIDE, DRSG APPLIED, NO BLEEDING OR REDNESS NOTED.
--- NOTE | 2018-05-21 12:22 | NUR ---
PATIENT IS DROWSY BUT AROUSABLE AT THIS TIME, DENIES PAIN OR ANY DISCOMFORT. EXPLAINED TO PATIENT THE PROCEDURE OF INTRAOSSEOUS CATHETER REMOVAL, PATIENT VERBALIZED UNDERSTANDING. REMOVED INTRAOSSEOUS CATHETER TO RT.TIBIA WITHOUT DIFFCULTY, CATHETER IS INTACT AND SITE NO HEMATOMA OR BLEEDING NOTED, COVERED SITE WITH DSD.PATIENT AARON. WELL WITH PROCEDURE.
--- NOTE | 2018-05-21 16:00 | NUR ---
SEEN BY DOCTOR KEN, NOTED ORDER FOR HEMODIALYSIS TODAY. CONSENT FOR HEMODIALYSIS SIGNED BY PATIENT WHO IS AAOX4.
[2018-05-21 16:18] VITALS: BP 129/57
--- NOTE | 2018-05-21 18:45 | NUR ---
HEMODIALYSIS ONGOING AT BEDSIDE. NO ANY DISTRESS NOTED.
[2018-05-21 19:30] VITALS: BP 115/39
--- NOTE | 2018-05-21 20:00 | NUR ---
AWAKE AND ALERT, ORIENTED TO NAME, PLACE, TIME AND SITUATION. SPEECH CLEAR AND APPROPRIATE. BREATHING EVEN AND UNLABORED ON 2LPM OF O2 VIA NC. LUNG SOUNDS DIMINISHED TO BASES. DIALYSIS WAS COMPLETED, DIALYSIS NURSE REPORTED 1.8 LITERS NET OUT. VITAL SIGNS STABLE. DIALYSIS SHUNT TO LEFT UPPER ARM POSITIVE FOR BRUITTS AND THRILLS, DRESSING CDI. SACRAL/COCCYX/BUTTOCKS PINK IN COLOR, PT STATED EXCORIATION IS BETTER, NOTED AREA HAVING MOISTURE BARRIER CREAM. PT ABLE TO REPOSITION SELF. PLACED ON HIGH FOWLERS, PT EATING REGULAR TEXTURED MEAL. NO CHOKING OR COUGHING OR SWALLOW DELAY NOTED.
[2018-05-21 20:47] VITALS: BP 126/41
--- NOTE | 2018-05-21 21:17 | NUR ---
AWAKE AND ALERT, WATCHING TV. BREATHING UNLABORED. CALL LIGHT WITHIN EASY REACH.
--- NOTE | 2018-05-21 22:03 | NUR ---
EXCORIATION TO INNER FOLDS OF BUTTOCKS AND REDNESS TO ABD FOLDS. CLEANSED AND Z GUARD APPLIED. ASSISTED BY FRANSICO GIL. LINEN AND GOWN CHANGED.
--- NOTE | 2018-05-21 23:22 | NUR ---
EYES CLOSED, BREATHING EVEN AND UNLABORED ON 2LPM OF O2 VIA NC. HOB KEPT ELEVATED 30 DEG. CALL LIGHT WITHIN EASY REACH.
[2018-05-22 05:31] VITALS: BP 125/53; BP 136/81
[2018-05-22 06:25] LABS: CALCIUM 8.7 mg/dL (8.5-10.1); CARBON DIOXIDE 28.9 mmol/L (21-32); MAGNESIUM 2.6 mg/dL (1.8-2.4); POTASSIUM SERUM 4.5 mmol/L (3.5-5.1)
[2018-05-22 06:27] LABS: CREATININE SERUM 8.9 mg/dL (0.6-1.0)
--- NOTE | 2018-05-22 07:13 | NUR ---
EYES CLOSED, BREATHING EVEN AND UNLABORED. DRESSING OVER LEFT UPPER ARM TO DIALYSIS SHUNT SITE CDI. CALL LIGHT WITHIN EASY REACH.
--- NOTE | 2018-05-22 07:38 | NUR ---
REPORT TAKEN FROM SCULLION CHIEF NURSE AT THE BEDSIDE. PT IS SLEEPING AT THIS TIME. WILL COMPLETE ASSESSMENT WHEN THE PT IS AWAKE.
[2018-05-22 08:02] LABS: BASOPHIL % 0.3 % (0-2); PLATELET COUNT 294 x10^3mcL (130-400)
[2018-05-22 08:04] VITALS: BP 113/41
[2018-05-22 08:06] LABS: RED CELL DISTRIBUTION WIDTH 20.4 % (11.5-14.5)
[2018-05-22 09:16] VITALS: BP 113/41
--- NOTE | 2018-05-22 09:16 | NUR ---
SPO2 100 ON 2 L/MIN NASAL CANNULA, DECREASED FLOW TO 1 L/MIN.
[2018-05-22 09:59] LABS: acanthocyte (spur cell) 2+; rbc morphology (normal/abnorm) ABNORMAL (NORMAL)
[2018-05-22 11:47] VITALS: BP 146/46
--- NOTE | 2018-05-22 11:48 | NUR ---
Intervention/RDN Recommendation(s): 1. Continue on renal diet as tolerated.
--- NOTE | 2018-05-22 11:48 | NUR ---
Initial Nutrition Assessment- Dx: blood diarrhea PMHx: T2DM, ESRD on HD (TTS), HTN, HDL PSHx: dialysis shunt Labs: (05/22/18) Na 135 L, K 4.5, Glu 131 H, BUN 42 H, Cr 8.9, Ca 8.7, TG 151 H, Chol 138, LDL 81, HDL 33 L, A1c 6.1, H/H 11.1/34 L. Meds: D50%/water, eliquis, humulin, Lipitor, morphine sulfate, neurotin, morphine sulfate, norco, sodium chl 0.9%, Tylenol, zofran Diet: Renal PO Intakes: (05/22) B: 100%, (05/21) B: 100%, L: 90% Ht: 160.02 cm/63 inches/5'3" Wt: 91.229 kg (200 pounds) BMI: 35.6 kg/m2, obesity class 2 IBW: 115 pounds (52 kg) %IBW: 173%; likely d/t fluid fluct r/t ESRD on HD UBW: Unable to obtain Age: 62 Food Allergies: No Known Food Allergies Skin: Excoriation to inner folds of buttocks and redness to abd folds per RN note (05/21) Juancarlos 15 Edema: none noted GI: Last BM 05/22/18 x 1 Pt admitted with dx: acute diarrhea, possible GI bleed, ESRD on HD, s/p PNA, T2DM, HTN. Per Physician Progress Note (05/22), Pt awake, alert, does not feel well today, still with cough and diarrhea, no blood diarrhea noted. Awaiting GI consult, F/U CXR tomorrow (05/23). RDN attempted to visit with Pt, Pt unarousable by name. RDN unable to interview. Pt had HD yesterday (05/21). Tolerating PO diet well, consumes 90-100% of all meals thus far. Nursing Trigger - N/V/D x 3 days Estimated Nutritional Needs Based on ideal body weight of 52 kg d/t Pt with ESRD on HD. Energy: 9424-9257 kcal/d (30-35 kcal/kg for ESRD on HD) Protein: 62-78 gm/d (1.2-1.5 gm/kg for ESRD on HD) Fluid: per d/t Pt with dx ESRD on HD Nutrition Diagnosis 1. Altered GI function related to pathophysiological causes as evidenced by Pt admitted with N/V/D > 3 days. Intervention/RDN Recommendation(s): 1. Continue on renal diet as tolerated. Monitor/Evaluate Goal: Intake via PO intakes to meet at least 75% of estimated needs with acceptable tolerance within 3-5 days. Monitor: PO intakes and/or nutrition support tolerance, Labs, GI function, Skin integrity, Weights. F/U in 3-5 days as moderate risk (05/25-)
--- NOTE | 2018-05-22 13:55 | NUR ---
PT REPORTED IRRITATION UNDER BELLY FOLD. SITE OBSERVED, RED WITH MILD SKIN BREAKDOWN. SITE CLEANED, INSTADRY APPLIED TO BELLY UNDER FOLD WITH TAPE TO HOLD IN PLACE. PT REPORTED RELIEF OF IRRITATION. WILL CONTINUE TO MONITOR.
--- NOTE | 2018-05-22 14:37 | NUR ---
PT FOUND TO BE ON ROOM AIR SPO2 96-98%, NASAL CANNULA 2 L/MIN PLACED ON STANDBY AND WITHIN REACH OF PT.
[2018-05-22 17:46] VITALS: BP 125/48
--- NOTE | 2018-05-22 19:11 | NUR ---
REPORT GIVEN TO STUDENT SUCCESS COUNSELOR NURSE AT THE BEDSIDE. PT RESTING COMFORTABLY AT THIS TIME, NAD. CARE PLAN ENDORSED TO STUDENT SUCCESS COUNSELOR NURSE.
--- NOTE | 2018-05-22 19:39 | NUR ---
ALERT, ORIENTED, TO NAME, PLACE, TIME AND SITUATION. SPEECH CLEAR AND APPROPRIATE. HOB ELEVATED 30 DEG. WATCHING TV AT THIS TIME. BREATHING EVEN AND UNLABORED ON 2LPM OF O2 VIA NC. STATED SHE WAS ON ROOM AIR EARLIER. SINUS RHYTHM WITH ELEVATED T WAVE. DENIES HAVING CHEST PAIN. DIALYSIS SHUNT TO LEFT FOREARM, POSITIVE FOR BRUITTS AND THRILLS. SALINE LOCK TO RIGHT SHOULDER.
[2018-05-22 21:01] VITALS: BP 98/57
--- NOTE | 2018-05-22 21:55 | NUR ---
PT STATED FEELING ITCHY AND SORE TO INNER GROIN AREA AND ABD FOLDS. INFORMED DR. DELACRUZ. NEW ORDER RECEIVED. CLEANED AREA. PHYTOPLEX ANTIFUNGAL CREAM APPLIED TO AFFECTED AREA. PLACED ANTIDRY TO ABDOMINAL FOLD. ASSISTED BY FRANSICO REYNOSO
--- NOTE | 2018-05-23 01:47 | NUR ---
eyes closed, breathing even and unlabored on 2lpm of o2 via nc. call light within easy reach.
[2018-05-23 05:39] VITALS: BP 98/44
[2018-05-23 06:27] LABS: PLATELET COUNT 258 x10^3mcL (130-400)
--- NOTE | 2018-05-23 06:39 | NUR ---
STATED GOOD RELIEF FROM ITCHING AND PAIN AFTER ANTIFUNGAL OINTMENT WAS APPLIED TO ABD FOLDS AND GROIN AREA. WITH SUPERVISOR COLOR PASTE MIXINGLenny BOGGS, BUTTOCKS, GROIN AND ABD FOLDS CLEANSED. APPLIED Z GUARD TO BUTTOCKS. PHOTODOCUMENTED. APPLIED ANTIFUNGAL OINTMENT TO ABD FOLD AND GROIN AREA. NOTED LESS RED THAN AT START OF SHIFT. INTERDRY APPLIED.
[2018-05-23 06:47] LABS: RED CELL DISTRIBUTION WIDTH 20.4 % (11.5-14.5)
[2018-05-23 07:03] LABS: CALCIUM 8.8 mg/dL (8.5-10.1); CARBON DIOXIDE 26.2 mmol/L (21-32); MAGNESIUM 2.7 mg/dL (1.8-2.4)
[2018-05-23 07:04] LABS: CREATININE SERUM 10.5 mg/dL (0.6-1.0)
--- NOTE | 2018-05-23 07:14 | NUR ---
RECEIVED PATIENT FROM LINDA CHANDLER. PT RESTING COMFORTABLY IN BED. ALL NEEDS MET.
--- NOTE | 2018-05-23 07:21 | NUR ---
awake and alert, breathing even and unlabored on room air. endorsed to nurse harmony
[2018-05-23 09:15] VITALS: BP 131/47
--- NOTE | 2018-05-23 09:19 | NUR ---
IN TO SEE PATIENT AND ADMINISTER MEDICATION. (SEE eMAR). PT RESTING COMFORTABLY IN BED. ALL NEEDS MET.
--- NOTE | 2018-05-23 10:46 | NUR ---
IN TO SEE PATIENT AND ADMINISTER MEDICATION. (SEE eMAR). PT RESTING COMFORTABLY IN BED. ALL NEEDS MET.
--- NOTE | 2018-05-23 11:47 | NUR ---
IN TO CHECK BLOOD GLUCOSE. (SEE eMAR)
[2018-05-23 12:15] VITALS: BP 102/45
[2018-05-23 12:48] LABS: BAND NEUTROPHIL 0 % (0-10); BASOPHIL 0 % (0-2); MONOCYTE 6 % (0-7); SEGMENTED NEUTROPHILS 87 % (37-75)
[2018-05-23 12:49] LABS: PLATELET MORPHOLOGY PLATELETS NORMAL; rbc morphology (normal/abnorm) ABNORMAL (NORMAL)
[2018-05-23 12:56] VITALS: BP 131/47
[2018-05-23 16:30] VITALS: BP 128/39
--- NOTE | 2018-05-23 17:01 | NUR ---
IN TO CHECK BLOOD GLUCOSE. (SEE eMAR)
--- NOTE | 2018-05-23 19:10 | NUR ---
RECEIVED PT IN BED RESTING.NO ACUTE RESPIRATORY DISTRESS NOTED. DENIES ANY PAIN AT THIS TIME.SALINE LOCK TO RIGHT SHOULDER PATENT AND INTACT. NOTICED REDNESS TO ABD FOLDS,EXCORIATON TO BUTTOCKS.BED IN LOWEST POSITION,CALL LIGHT WITHIN REACH. WILL CONTINUE TO MONITOR.
--- NOTE | 2018-05-23 19:17 | NUR ---
REPORT GIVEN TO WENDY CHANDLER. PT RESTING COMFORTABLY IN BED. ALL NEEDS MET. ALL QUESTIONS AND CONCERNS ADDRESSED. ALL CARES ENDORSED.
[2018-05-23 20:57] VITALS: BP 122/32
--- NOTE | 2018-05-23 21:57 | NUR ---
DIALYSIS NURSE STARTED GIVING HD.
--- NOTE | 2018-05-23 23:40 | NUR ---
HD DONE.1340CC OUT. PT A/OX4.NO SOB NOTED. V/S STABLE.WILL CONTINUE TO MONITOR.
--- NOTE | 2018-05-24 00:17 | NUR ---
PT C/O NAUSEA.MEDICATED ZOFRAN 4MG IV ORDERED. WILL CONTINUE TO MONITOR.
--- NOTE | 2018-05-24 05:06 | NUR ---
PT REMAINED ASLEEP. NO SOB NOTED. NO C/O PAIN. BED IN LOWEST POSITION,CALL LIGHT WITHIN REACH. WILL CONTINUE TO MONITOR.
--- NOTE | 2018-05-24 05:27 | NUR ---
BS 172. PT REFUSED INSULIN.DR PEREA NOTIFIED.WILL CONTINUE TO MONITOR.
[2018-05-24 05:52] VITALS: BP 115/35
--- NOTE | 2018-05-24 06:57 | NUR ---
PT REFUSED LAB DRAW. DR PEREA AWARE.
--- NOTE | 2018-05-24 07:00 | NUR ---
RECEIVED REPORT FROM FORM WORKER NURSE. PATIENT RESTING COMFORTABLY IN BED AT THIS TIME. NO APPARENT DISTRESS OR DISCOMFORT NOTED. BREATHING EVEN AND UNLABORED. PATIENT DENIES CHEST PAIN AT THIS TIME. IV PATENT AND INTACT. ALL QUESTIONS AND CONCERNS ADDRESSED. ALL NEEDS ATTENDED TO. WILL CONTINUE TO MONITOR
--- NOTE | 2018-05-24 07:18 | NUR ---
CARE ENDORSED TO DAY NURSE
--- NOTE | 2018-05-24 07:29 | NUR ---
PATIENT C/O NAUSEA AT THIS TIME. PRN ZOFRAN ADMINISTERED (SEE EMAR). NO ADVERSE EFFECTS NOTED. ALL NEEDS ATTENDED TO. WILL CONTINUE TO MONITOR
[2018-05-24 08:35] VITALS: BP 105/52
[2018-05-24 09:25] LABS: PLATELET COUNT 255 x10^3mcL (130-400)
[2018-05-24 09:26] LABS: RED CELL DISTRIBUTION WIDTH 20.7 % (11.5-14.5)
[2018-05-24 09:29] LABS: CALCIUM 9.1 mg/dL (8.5-10.1); CARBON DIOXIDE 24.7 mmol/L (21-32); POTASSIUM SERUM 3.8 mmol/L (3.5-5.1)
--- NOTE | 2018-05-24 09:30 | NUR ---
MORNING MEDICATION HELD DUE TO DIALYSIS. ALL NEEDS ATTENDED TO. WILL CONTINUE TO MONITOR
[2018-05-24 09:33] LABS: CREATININE SERUM 8.3 mg/dL (0.6-1.0)
--- NOTE | 2018-05-24 11:39 | NUR ---
BLOOD SUGAR 147. NO INSULIN COVERAGE REQUIRED. ALL NEEDS ATTENDED TO. WILL CONTINUE TO MONITOR
[2018-05-24 12:30] LABS: BAND NEUTROPHIL 1 % (0-10); BASOPHIL 1 % (0-2); MONOCYTE 3 % (0-7); SEGMENTED NEUTROPHILS 81 % (37-75)
[2018-05-24 12:31] LABS: rbc morphology (normal/abnorm) ABNORMAL (NORMAL)
[2018-05-24 12:32] LABS: PLATELET MORPHOLOGY PLATELETS NORMAL
[2018-05-24 12:45] VITALS: BP 134/65
--- NOTE | 2018-05-24 13:00 | NUR ---
PATIENT SITTING UP IN BED EATING LUNCH AT THIS TIME. TOLERATING DIET WELL. NO APPARENT DISTRESS OR DISCOMFORT NOTED. ALL NEEDS ATTENDED TO. WILL CONTINUE TO MONITOR
[2018-05-24 16:40] VITALS: BP 126/32
--- NOTE | 2018-05-24 17:56 | NUR ---
PATIENT SITTING UP IN BED EATING DINNER AT THIS TIME. PATIENT TOLERATING DIET FAIRLY. ALL NEEDS ATTENDED TO. WILL CONTINUE TO MONITOR
--- NOTE | 2018-05-24 18:57 | NUR ---
PATIENT RESTING COMFORTABLY IN BED AT THIS TIME. NO APPARENT DISTRESS OR DISCOMFORT NOTED. IV PATENT AND INTACT. ALL QUESTIONS AND CONCERNS ADDRESSED. SAFETY PRECAUTIONS MAINTAINED. ALL NEEDS ATTENDED TO. WILL ENDORSE ALL CARE TO ELECTRIC DRILL OPERATOR NURSE
[2018-05-24 20:23] VITALS: BP 107/30
--- NOTE | 2018-05-24 23:11 | NUR ---
PATIENT RECEIVED AWAKE, ALERT, ORIENTED X4 IN BED. RESPIRATION EVEN AND UNLABORED, ON O2 2L PER NASAL CANNULA, ON RT PROTOCOL. SALINE LOCK TO RIGHT FOREARM. ANURIC, HEMODICALYSIS PATIENT (TTHS). AV SHUNT TO LEFT UPPER ARM. GENERALIZED WEAKNESS TO EXTREMITIES, LEFT BKA, 3 TOES AMPUTATION ON RT FOOT. REDNESS TO BUTTOCKS AND ABDOMINAL FOLD. TELE #13. SALINE LOCK TO RIGHT FOREARM. WILL CONTINUE TO MONITOR.
[2018-05-25 05:48] VITALS: BP 128/51
--- NOTE | 2018-05-25 06:23 | NUR ---
PATIENT RESTING IN BED. RESPIRATION EVEN AND UNLABORED, ON O2 2L PER NASAL CANNULA. DENIES DISCOMFORT/PAIN. SALINE LOCK TO RIGHT FOREARM PATENT AND INTACT. ASSISTED WITH NEEDS. SAFETY OBSERVED. PLACED BED IN THE LOWEST POSITION. PLACED CALL LIGHT WITHIN REACH AT ALL TIMES.
[2018-05-25 06:35] LABS: CALCIUM 9.3 mg/dL (8.5-10.1); CARBON DIOXIDE 27.5 mmol/L (21-32); POTASSIUM SERUM 4.5 mmol/L (3.5-5.1)
[2018-05-25 07:20] LABS: BASOPHIL % 0.2 % (0-2); PLATELET COUNT 244 x10^3mcL (130-400)
[2018-05-25 07:22] LABS: RED CELL DISTRIBUTION WIDTH 20.4 % (11.5-14.5)
[2018-05-25 07:23] LABS: CREATININE SERUM 8.2 mg/dL (0.6-1.0); rbc morphology (normal/abnorm) ABNORMAL (NORMAL)
--- NOTE | 2018-05-25 07:30 | NUR ---
PT ENDORSE TO ME THIS MORNING. LAYING IN BED RESTING. AA/O X4. BREATHING EVEN AND UNLABORED ON 2 L NC. NO ACUTE RESP DISTRESS OR SOB NOTED. TELE 13 HR 85. DENIES ANY CP OR PRESSURE. HEMODIALYSIS ON //. LAST WAS ON YESTERDAY, 1.5L OUT. LAST BM 05/25, NORMAL. GEN WEAKNESS DUE TO L BKA AND THREE TOES TO RIGHT FOOT AMPUTATED. REDNESS OT THE BUTTOCKS/ZGRAUD APPLIED. IV TO THE RFA INTACT AND PATENT. CALL LIGHT IN REACH. BED IN LOW POSITION. WILL CONTINUE PLAN OF CARE.
[2018-05-25 09:20] VITALS: BP 108/43
--- NOTE | 2018-05-25 12:16 | NUR ---
Follow-up Nutrition Assessment Dx: Diarrhea, Dehydration Labs: (05/25) Na 140, K 4.5, BG 121H, BUN 41H, Cr 8.2H, Ca 9.3, A1c 6.1, WBC 15.9H, H/H 10.8L/33L BG accucheck readings 05/23-05/25 all <180 mg/dL, indicating adequate glycemic control; insulin coverage is provided PRN. Meds: Adalat, Amitiza, D50%, Diflucan, Eliquis, Humulin, Lipitor, Neurontin, Rocephin, Zofran Diet: Renal PO intake: (05/25) B: 30% (05/24) B: 65% L/D: 85% (05/23) BLD: 100% x 3 meals HD output: (05/24) 1500 mL (05/21) 1800 mL Weights: 91.2 kg Skin: Redness to buttocks, AV shunt to NANCYE Juancarlos: 16 Edema: None Last BM: x 1, soft stool (05/25) Per provider progress notes, pt. anxious about chronic health conditions. Otherwise noted with no acute events overnight. Pt. endorses fair to good appetite, which has improved since admission, and no reports of GI distress. Large, loose stools has resolved per pt. Continues to receive HD on TTHS schedule for renal replacement therapy. No major changes from previous assessment. Estimated Nutritional Needs based on IBW 52 kg: No changes from previous assessment. Energy: 9288-0909 kcal (30-35 kcal/kg-HD maintenance) Protein: 62-78 g (1.2-1.5 g/kg-HD maintenance and prevention of lean body mass losses) Fluid: 7584-1668 mL (1 mL/kcal or per MD order-for fluid balance and maintenance) Nutrition Diagnosis 1. Altered GI function r/t pathophysiological causes AEB pt. admitted with N/V/D > 3 days (resolved). 2. Increased nutrient needs r/t renal dysfunction AEB pt. needs for maintenance HD Q TTHS for hx ESRD. (Ongoing-new) Intervention/RD recommendations 1. Continue renal diet with Nepro QD as ordered and as tolerated to meet >75% estimated calorie and protein needs. Nepro QD provides 425 kcal and 20 g protein for increased nutrient needs/replenishment. Monitor/Evaluate Previous goal: PO intake at least 75% of estimated needs (Ongoing) Goal: PO intake at least 75% of estimated needs Monitor: PO intake, Labs, GI function, skin, weights F/U in 3-5 days as moderate risk (05/28-05/30)
[2018-05-25 12:17] VITALS: BP 105/55
[2018-05-25 16:03] VITALS: BP 107/41
[2018-05-25 16:04] VITALS: BP 105/55
--- NOTE | 2018-05-25 18:00 | NUR ---
HD GERALDINE WILLINGHAM CALLED DR. EAGLE AND PER HIS ORDERS PT WILL NOT REC HD TODAY / WILL RESUME HD TOMORROW MORNING.
--- NOTE | 2018-05-25 18:00 | NUR ---
US COMPLETED AT BEDSIDE
--- NOTE | 2018-05-25 18:36 | NUR ---
NO ACUTE CHANGES AT THIS TIME, PT JUST FINISHED REC US ABD. NUCLEAR MED TECH JUST CALLED AND WILL BE PICKING UP PT FOR HIDA SCAN, PT HAS BEEN NPO SINCE 1230PM. NO ACUTE CHANGES AT THIS TIME, DENIES ANY SOB OR DISCOMFORT AT THIS TIME. REMAINS ON 2L NC SATING 96-97%. IV TO THE RFA INTACT AND PATENT/ HEPLOCKED. WILL ENDORSE TO INCOMING RN.
--- NOTE | 2018-05-25 20:41 | NUR ---
PT'S CURRENT PT IS HAVING HIDA SCAN DOWN-STAIRS.
[2018-05-25 21:39] VITALS: BP 113/47
--- NOTE | 2018-05-25 22:46 | NUR ---
PT'S BACK FROM HIDA SCAN VIA W/C NO ACUTE DISTRESS NOTED .
--- NOTE | 2018-05-26 00:45 | NUR ---
PT'S IN BED AWAKE NO ACUTE DISTRESS NOTED , TELE NSR/BBB.
--- NOTE | 2018-05-26 04:04 | NUR ---
I HAVE REVIEWED THE DATA COLLECTION BY MARIANNA (NAME): DESMOND CRUMP ENTERED ON (DATE/TIME): 05/26/18, 0 I CONCUR WITH THE DATA AND ANY EXCEPTIONS OR COMMENTS ARE LISTED BELOW:
--- NOTE | 2018-05-26 04:57 | NUR ---
POST ZOFRAN PT CON'T VONITING DR PEREA AWARE ORDERED PHENERGAN IVP RN WILL MEDICATE PT .
[2018-05-26 05:48] VITALS: BP 96/43
--- NOTE | 2018-05-26 06:32 | NUR ---
NO CHANGES OF CONDITION NOTED, ALL DUE MEDS GIVEN NO REACTION NOTED, PT';S IN BED WITH EYES CLOSED.
[2018-05-26 06:49] LABS: CALCIUM 9.7 mg/dL (8.5-10.1); CARBON DIOXIDE 23.5 mmol/L (21-32); POTASSIUM SERUM 4.3 mmol/L (3.5-5.1)
[2018-05-26 06:52] LABS: BASOPHIL % 0.5 % (0-2); PLATELET COUNT 254 x10^3mcL (130-400); RED CELL DISTRIBUTION WIDTH 20.1 % (11.5-14.5)
--- NOTE | 2018-05-26 07:30 | NUR ---
PT ENDORSE TO ME THIS MORNING. LAYING IN BED RESTING. AA/O X4. BREATHING EVEN AND UNLABORED ON 2L NC. NO ACUTE RESP DISTRESS OR SOB NOTED. TELE 13 NSR WITH AFIB NOTED, HR 96. DENIES ANY CP OR PRESSURE. BOWEL SOUNDS ACTIVE IN ALL FOUR QUADS, CONTACT PREC INPLACE. HD PATIENT (T,TH,S) SCHD FOR HD TODAY, AV SHUNT INTACT LUE. GEN WEAKNESS/WHEELCHAIR BOUND DUE TO L BKA. REDNESS TO BUTTOCKS APPLYING ZG. IV TO THE RFA INTACT AND PATENT/HEPLOCKED. CALL LIGHT IN REACH. BED IN LOW POSITION. WILL CONTINUE PLAN OF CARE.
[2018-05-26 09:25] VITALS: BP 114/56
--- NOTE | 2018-05-26 10:00 | NUR ---
PT C/O FEELING NAUSEOUS, MEDICATED PER EMAR. DR. MATOS AT BEDSIDE WILL CONTINUE TO MONITOR. CALL LIGHT IN REACH. BED IN LOW POSITION.
[2018-05-26 10:26] LABS: BILIRUBIN DIRECT 0.14 mg/dL (0.0-0.2); BILIRUBIN TOTAL 0.4 mg/dL (0.20-1.00); TOTAL PROTEIN, SERUM 7.6 g/dL (6.4-8.2)
[2018-05-26 10:33] LABS: ovalocyte/elliptocyte 1+; rbc morphology (normal/abnorm) ABNORMAL (NORMAL)
[2018-05-26 10:53] LABS: ALBUMIN 2.7 g/dL (3.4-5.0)
[2018-05-26 13:31] VITALS: BP 91/49
[2018-05-26 17:09] VITALS: BP 118/36
--- NOTE | 2018-05-26 18:49 | NUR ---
NO ACUTE CHANGES AT THIS TIME. CURRENTLY REC HD AT THIS TIME. TOLERATING WELL. NO ACUTE RESP DISTRESS OR SOB NOTED. DENIES ANY N/V AT THIS TIME OR DISCOMFORT/ OR CHEST PAIN. IV TO THE RFA INTACT AND PATIENT/HEPLOCKED. WILL ENDORSE TO INCOMING RN.
--- NOTE | 2018-05-26 18:56 | NUR ---
HD COMPLETE / TOTAL 1L OUT/ TOLERATED WELL. WILL ENDORSE TO INCOMING RN.
--- NOTE | 2018-05-26 19:27 | NUR ---
RECEIVED PT FROM PREVIOUS SHIFT. PT A/OX4. DENIES PAIN. DENIES SOB ON 2LNC. IV TO RFA, CDI. CALL LIGHT WITHIN REACH, BED IN LOW POSITION. WILL CONTINUE TO MONITOR.
[2018-05-26 20:31] VITALS: BP 95/40
--- NOTE | 2018-05-27 00:01 | NUR ---
PT RESTING IN NO ACUTE DISTRESS. RR EVEN AND UNLABORED. CALL LIGHT WITHIN REACH, BED IN LOW POSITION. WILL CONTINUE TO MONITOR.
[2018-05-27 05:57] VITALS: BP 104/43
[2018-05-27 08:30] VITALS: BP 102/31
[2018-05-27 08:31] VITALS: Ht 160 cm; Wt 91.2 kg
--- NOTE | 2018-05-27 09:49 | NUR ---
AT 0705 - RECEIVED PATIENT FROM NIGHT NURSE. AWAKE, ALERT AND ORIENTED X 4. MONITOR SHOWING SINUS RHYTHM; RATE 80'S. FOR HD TODAY. AT 0800 - EATING BREAKFAST. AT 0900 - HD IN PROGRESS.
[2018-05-27 13:30] VITALS: BP 104/46
--- NOTE | 2018-05-27 14:55 | NUR ---
AT 1000 - HEMODIALYSIS COMPLETED. TOTAL OF 200 ML REMOVED. POST DIALYSIS BP 100/41. AT 1330 - C/O PERSISTANT COUGH. CONTACTED SOLDERER SYLVESTER. SHE WILL ENTER ORDER. AT 1415 - GIVEN CRUZ PER EMAR. PATIENT REQUESTED THAT I SPEAK WITH HER DAUGHTER PER PHONE AND EXPLAIN TO HER MEANING OF HER BOWEL INFECTION WITH C-DIFF. SHE HANDED ME HER TELEPHONE. SPOKE WITH DAUGHTER AND ANSWERED HER QUESTIONS REGARDING C-DIFF.
[2018-05-27 16:55] VITALS: BP 103/56
--- NOTE | 2018-05-27 18:54 | NUR ---
PATIENT C/O RUQ ABDOMINAL PAIN AFTER EATING DINNER. MEDICATED WITH TYLANOL PER EMAR. VSS. AFEBRILE. CONTACT ISOLATION FOR C-DIFF, MAINTAINED. REPROTS RELIEF OF COUGH SINCE TAKING ROBITUSSEN. PATIENT SITS ON SIDE OF BED AND MOVES FREELY. WAS SEEN BY PT BUT HE WILL WORK WITH PATIENT TOMORROW. WILL ENDORSE CARE TO NIGHT NURSE.
--- NOTE | 2018-05-27 19:22 | NUR ---
SEATED UP IN BED AAO X4 NO HEADACHE OR DIZZINESS, NO DISTRESS LUNGS DIM AT THE BASES OCC NON PRODUCTIVE COUGH, SALINE LOCK RFA PATENT NON INFIL, DENIES DIARRHEA, ON CONTACT ISO CDIFF STOOL, PT DENIES PAIN NOR DISCOMFORTS, ANURIC HAS HD TODAY PER REPORT PUTTING OUT 2L, AARON WELL, TELE #14 INPLACED SR IN THE MONITOR WITH BBB, ON TX TO VAGINAL YEAST DENIES ITCHINESS, BOTH BUTTOCKS WITH ZGUARD, KEEP DRY AND CLEAN AT ALL TIMES, SHIFT ASSESMENT DONE, NEEDS ATTENDED, CONT TO MONITOR.
[2018-05-27 20:11] VITALS: BP 100/49
--- NOTE | 2018-05-27 22:56 | NUR ---
PT STILL C/O RLQ PAIN 9/10 PER PAIN ASSESSMENT WAS GIVEN TYLENOL EARLIER BUT NOT HELPING DR PEREA AND DR CANELA MADE AWARE AWAITING FOR ORDERS.
--- NOTE | 2018-05-27 23:10 | NUR ---
PT FELT NAUSEATED NO VOMITING NO DIARRHEA, ZOFRAN 4MG IVP GIVEN PER PRN ORDER CONT TO MONITOR.
--- NOTE | 2018-05-28 01:25 | NUR ---
PT ASLEEP AT THIS TIME, NO S/SX OF PAIN OR DISCOMFORTS. VISUAL CHECKED AT AT INTERVALS.
[2018-05-28 05:45] VITALS: BP 111/60
--- NOTE | 2018-05-28 06:10 | NUR ---
PT SLEPT WELL DENIES PAIN, BUT STATED ABDL PAIN COMES BACK AFTER EATING, DUE MEDS GIVEN, BLD SUGAR 91 MG/DL, ATTENDED NEEDS CALL LIGHT AT REACH, CONT TO MONITOR.
[2018-05-28 07:39] LABS: BASOPHIL % 1.4 % (0-2); PLATELET COUNT 308 x10^3mcL (130-400)
--- NOTE | 2018-05-28 07:50 | NUR ---
AT 0730 - RECEIVED PATIENT FROM NIGHT NURSE. AWAKE, ALERT AND ORIENTED. MONITORSHOWING SINUS RHYTHM WITH OCCASIONAL PAC; RATE 90. RESPIRATIONS REGULAR. DRY COUGH. DENIES ANY DIARRHEA. ON CONTACT ISOLATION FOR C-DIFF.
[2018-05-28 07:54] LABS: CALCIUM 9.3 mg/dL (8.5-10.1); CARBON DIOXIDE 30.2 mmol/L (21-32); MAGNESIUM 1.8 mg/dL (1.8-2.4); PHOSPHOROUS 5.1 mg/dL (2.5-4.9); POTASSIUM SERUM 4.5 mmol/L (3.5-5.1)
[2018-05-28 07:55] LABS: CREATININE SERUM 7.5 mg/dL (0.6-1.0)
[2018-05-28 08:01] LABS: RED CELL DISTRIBUTION WIDTH 20.3 % (11.5-14.5)
[2018-05-28 08:44] VITALS: BP 111/60
[2018-05-28 09:13] VITALS: BP 85/54
[2018-05-28 09:45] LABS: acanthocyte (spur cell) 1+; rbc morphology (normal/abnorm) ABNORMAL (NORMAL); target cell (codocyte) 1+
--- NOTE | 2018-05-28 10:04 | NUR ---
AT 0930 - PATIENT CRYING. C/O RUQ PAIN. PATIENT EXPRESSED CONCERN ABOUT GOING TO SNF AND HAVING GALLBLADDER SURGERY AT A LATER DATE. WAS TOLD THAT SHE NEEDS TO BE TREATED FOR C-DIFF FIRST. SPOKE WITH [employer] DEAN PHAN REGARDING RECEIVING ORDER FOR PAIN MEDICATION. AT 0945 - MEDICATED WITH 15 MG TORADOL. PATIENT SAYS THAT SHE SPOKE WITH HER DAUGHTER AND WILL GO TO SNF RECOMMENDED.
--- NOTE | 2018-05-28 10:26 | NUR ---
PATIENT RESTING QUIETLY AT THIS TIME.
--- NOTE | 2018-05-28 12:37 | NUR ---
PATIENT REPORTS COMPLETE RELIEF OF PAIN. SLEPT AFTER RECEIVING MEDICATION AND SAYS THAT SHE IS FEELING BETTER. SITTING ON SIDE OF BED EATING LUNCH.
[2018-05-28 12:39] VITALS: BP 93/52
--- NOTE | 2018-05-28 13:12 | NUR ---
SEEN BY DR EAGLE. RECEIVED [facility] FOR DIALYSIS FOR TODAY. [employer] TEAMMATE CALLING DIALYSIS.
[2018-05-28 17:28] VITALS: BP 101/61
--- NOTE | 2018-05-28 18:27 | NUR ---
VSS AND WNL. AFEBRILE. EATING WELL. NO FURTHER C/O PAIN. AWAITING HEMODIALYSIS. WILL ENDORSE CARE TO NIGHT NURSE.
--- NOTE | 2018-05-28 19:35 | NUR ---
PT WAITING FOR DIALYSIS SCHED FOR TONIGHT, AAO X4 VERBAL DENIES PAIN NOT IN DISTRESS, NO EPISODES OF DIARRHEA HAD BM X1 TODAY, CONT ON CONTACT ISO FOR CDIFF STOOL, DENIES ABDL PAIN, BS ACTIVE X4 QUADRANTS OF THE ABD, NO NAUSEA OR VOMITING, IV ACCESS @ RFA PATENT NON INFIL, TELE #14 INPLACED SR WITH BBB, NO CP OR PRESSURE, SHIFT ASSESSMENT DONE, OFFERED SNACKS PER REQUEST, WILL CONT TO MONITOR.
[2018-05-28 20:54] VITALS: BP 110/68
--- NOTE | 2018-05-28 23:45 | NUR ---
PT JUST COMPLETED HD PUTTING OUT 1LITER AARON WELL, V/S STABLE, PT C/O ABDL PAIN MOSTLY IN RT LOWER QUADRANT 10 PER ASSESSMENT, TYLENOL 650 MG PO GIVEN PER PRN ORDER CONT TO MONITOR.
--- NOTE | 2018-05-29 01:23 | NUR ---
PT AWAKE CLAIMED FEELING ANXIOUS CRYING STATED THAT SHE CAN'T SLEEP AND RESTLESS, PER PT SHE'S TAKING ZOLOFT 100 MG AT NIGHT FOR DEPRESSION, DENIES PAIN, CALLED DR ALLEN SPOKE TO MD AND RELAYED PT'S CONCERNS [place] FEELING ANXIOUS, AWAITING FOR ORDERS.
--- NOTE | 2018-05-29 01:47 | NUR ---
ATIVAN 1MG IVP GIVEN X1 DOSE ONLY FOR ANXIETY, WILL MONITOR.
[2018-05-29 05:13] VITALS: BP 104/38
[2018-05-29 05:53] LABS: BASOPHIL % 0.5 % (0-2); PLATELET COUNT 289 x10^3mcL (130-400)
[2018-05-29 06:09] LABS: RED CELL DISTRIBUTION WIDTH 20.2 % (11.5-14.5)
[2018-05-29 06:13] LABS: CALCIUM 9.6 mg/dL (8.5-10.1); CARBON DIOXIDE 28.3 mmol/L (21-32); POTASSIUM SERUM 4.1 mmol/L (3.5-5.1)
[2018-05-29 06:14] LABS: CREATININE SERUM 5.4 mg/dL (0.6-1.0)
--- NOTE | 2018-05-29 06:16 | NUR ---
PT SLEEPING AT THIS TIME, ATIVAN IV WAS GIVEN AND HELPING PT TO FALL ASLEEP NOT IN ANY DISTRESS, ATTENDED NEEDS, CALL LIGHT AT REACH, CONT TO MONITOR.
[2018-05-29 06:22] LABS: rbc morphology (normal/abnorm) ABNORMAL (NORMAL)
[2018-05-29 06:25] LABS: ovalocyte/elliptocyte 1+; target cell (codocyte) 1+
[2018-05-29 09:52] VITALS: BP 107/62
--- NOTE | 2018-05-29 12:35 | NUR ---
AT 0730 - RECEIVED PATIENT FROM NIGHT NURSE. AWAKE, ALERT AND ORIENTED. MONITOR SHOWING A-FIB WITH BBB; RATE 80'S. ON CONTACT ISOLATION OF C-DIFF AT 0815 - SPOKE WITH ISABELLA PHAN REGARDING PATIENT'S ELIQUIS WHICH IS STIL ON HOLD. SHE WILL REVIEW. AT 1215 - PATIENT SAID THAT SHE WAS HOPING TO GET HER ZOLOFT TODAY. IT WAS ORDERED AND HAD BEEN SCAHEDULED FOR TOMORROW MORNING. CONTACTED ISABELLA PHAN WHO PLACED A NOW ORDER FOR TODAY. PATIENT IS SITTING ON SIDE OF BED FOR LUNCH. GOOD APPETITE AT THIS TIME.
[2018-05-29 14:00] VITALS: BP 112/73
--- NOTE | 2018-05-29 14:08 | NUR ---
Initial Nutrition Assessment Dx: Clavicular fracture, intractable pain, 5150 PMHx: Vertigo, Neuropathy, Hypothyroidism PSHx: none noted Labs:(05/25) Cr:1.2H Meds:Ambilify, Bactoban, Cephulac, Colace, Neurontin, [place], Reglan, Tylenol, Ultram, Zofran, Heparin Diet: Regular PO Intake: (05/27) B:100% L:100% D:90% (05/28) B:75% L:100% D:50% (05/29) B:100% Ht:67in, 5'7" Wt:84.822kg, 187# BMI:29.3kg/m2 (overweight) IBW:135#, 61kg %IBW: 139% UBW:pt does not know Age: 53 y/o female Food Allergies:NKFA Skin:ecchyhmosis to right chest and arm Juancarlos: 19 Edema: trace to BLE GI:hypoactive bowel sounds Last BM:05/22 Per H&P, pt has a history of psychosis recently located into this area from [place]. Pt is currently homeless. Pt had a fall 6 days ago with vertigo, per H&P. Per progress note 05/29, pt with improved pain control with no nausea and vomiting. Plan: recommend discharge to long term or a homeless jail. Pt has been cleared of 5150. During visit, pt was seen laying in bed. Pt states she has a good appetite eating mostly 100% of all meals, however, with jaymie BM x 7 days. Problem with: N/V/D: C: Yes Problems with: Chewing:/Swallowing: No Current appetite: Good Recent wt change:unable to assess %wt change:N/A Vitamin/Supplement use:No Special diet at home:Regular Physical activity:No Education: pt did not have any questions for RD during interview. Estimated Nutritional Needs Based on ideal body weight 61kg Energy: 1525-1830kcal/d (25-30kcal/kg for maintenance) Protein: 61g/d (1g/kg for maintenance) Fluid:0452-7453 ml/d (1 ml/kcal) or per doctor Nutrition Diagnosis 1. Overweight related to overconsumption of kcals as evidenced by BMI:29.3kg/m2 and 139% of IBW. 2. Altered GI function related to unknown etilogy as evidenced by no Bm x 7 days. Intervention 1.Recommend continue with Regular diet. 2. Recommend adjust BM regimen due to no BM x 7 days. Monitor/Evaluate Goal: PO intake at least 75% of estimated needs Monitor: PO intake, Labs, GI function F/U in 7 days as low risk:06/05
--- NOTE | 2018-05-29 14:10 | NUR ---
1.Recommend continue with Regular diet. 2. Recommend adjust BM regimen due to no BM x 7 days.
--- NOTE | 2018-05-29 15:07 | NUR ---
SPOKE WITH JOHN FROM RADIOLOGY. MRI WILL BE DONE EITHER TODAY BEFORE 1999 OR TOMORROW BEFORE NOON. PATIENT REPORTS THAT PAIN IS LESS SINCE LEG HAS BEEN BANDAGED.
--- NOTE | 2018-05-29 15:09 | NUR ---
PATIENT RESTING QUIETLY AT THIS TIME
[2018-05-29 17:00] VITALS: BP 120/56
--- NOTE | 2018-05-29 18:27 | NUR ---
VSS AND WNL. MONITOR SHOWING SINUS RHYTHM; RATE 90. NO C/O PAIN AT THIS TIME. NO DIARRHEA. EATING WELL. CONTACT ISOLATION MAINTAINED. WILL ENDORSE CARE TO NIGHT NURSE.
--- NOTE | 2018-05-29 19:56 | NUR ---
AWAKE AND VERBALLY RESPONSIVE, ABLE TO MAKE NEEDS KONW. SKIN WARM AND DRY TO TOUCH. RESPIRATIOM EVEN AND UNLABORED. NOTED TO HAVE DRY COUGH, ON TELE #14 WITH AFIB AT 78/MIN. ELIWMIGUE STILL ON HOLD WILL TO TALK TO INVESTOR RELATIONS ASSOCIATE ICF ELEQUIS CAN BE GIVEN TODAY. CALL LIGHT WITHIN REACH, INSTRUCTED TO CALL FOR ANY ASSISTANCE NEEDED AND VERBALIZED UNDERSTANDING.
[2018-05-29 21:25] VITALS: BP 103/49
--- NOTE | 2018-05-29 22:00 | NUR ---
PT C/O INTERMITTENT COUGHM ROBITUSSIN DM GIVEN PER MD'S ORDER. TOLERATED WELL. HAD BX 1 SOFT STOOL BRWNISH COLOR IN MODERATE AMOUBNT. GOODM PERICARE RENDERED.
--- NOTE | 2018-05-29 23:43 | NUR ---
EYES CLOSED, NOF ACIAL GRIAMCING NOTED. RESPIRATIONE OSVALDO AND UNLABORED. NO S/S OF ACUTE DISTRESS.
[2018-05-30] VITALS (7 sets, daily range): BP systolic 93–133; BP diastolic 43–59
--- NOTE | 2018-05-30 03:33 | NUR ---
ABLE TO SLEEP AT SHORT INTERVALS. STILL WITH INTEMITTENT COUGH, HOB ELEVATED AT 45 DEGREES AT ALL TIMES. OEAL FLUIDS TAKEN AND WELL TOLERATED.
--- NOTE | 2018-05-30 05:32 | NUR ---
BLOOD SUGAR CHECK 120MG/DL, NO HRI COVERAGE PER SLIDING SCALE . DUE MEDICATIONS GIVEN AND WELL TOLERATED. KEPT CLEAN AND DRY. ALL NEEDS ATTENDED.
[2018-05-30 07:04] LABS: CALCIUM 9.8 mg/dL (8.5-10.1); CARBON DIOXIDE 26.2 mmol/L (21-32); POTASSIUM SERUM 4.8 mmol/L (3.5-5.1)
[2018-05-30 07:18] LABS: BASOPHIL % 0.3 % (0-2); CREATININE SERUM 7.1 mg/dL (0.6-1.0); PLATELET COUNT 333 x10^3mcL (130-400); RED CELL DISTRIBUTION WIDTH 19.7 % (11.5-14.5)
--- NOTE | 2018-05-30 07:30 | NUR ---
PT ENDORSE TO ME THIS MORNING. SITTING UP IN BED RESTING. AA/O X4 /BREATHING EVEN AND UNLABORED ON RA/ NO ACUTE RESP DISTRESS OR SOB NOTED. DEMODIALYSIS PATIENT. LAST HD 05/28 SAT 1 L OUT. HD ON //SAT. TELE 14 /HR 95/ DENIES ANY CP OR PRESSURE.PER PT DOES NOT VOID ANYMORE. AV SHUNT TO LUE. THRILL AND BRUIT PRESENT. 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 IV TO THE RFA INTACT AND PATENT/ HEPLOCKED. CALL LIGHT IN REACH / BED IN LOW POSITION. WILL CONTINUE PLAN OF CARE.
--- NOTE | 2018-05-30 10:44 | NUR ---
PT C /O GEN BODY PAIN 08/19 , MEDICATED PER EMAR. WILL CONTINUE TO MONITOR. PT CURRENTLY WORKING WITH PATIENT.
--- NOTE | 2018-05-30 10:51 | NUR ---
VS AFTER PHYSICAL THERAPY 106/50 MAP 69, HR 85 100 % RA, 97.6 TEMP. WILL CONTINUE TO MONITOR.
--- NOTE | 2018-05-30 13:20 | NUR ---
ASSISTED PT BACK TO CHAIR. TOLERATED 100% OF HER LUNCH. DENIES ANY GEN BODY PAIN AT THIS TIME. CALL LIGHT IN REACH. AT BEDSIDE. WILL CONTINUE PLAN OF CARE.
--- NOTE | 2018-05-30 17:59 | NUR ---
PT SITTING UP IN BED HAVING HER DINNER. DENIES ANY PAIN OR DISCOMFORT AT THIS TIME. CALL LIGHT IN REACH. BED IN LOW POSITION. WILL CONTINUE PLAN OF CARE.
--- NOTE | 2018-05-30 18:17 | NUR ---
NO ACUTE CHANGES AT THIS TIME. NO ACUTE RESP DISTRESS OR SOB NOTED. DENIES ANY CP OR PRESSURE. WILL ENDORSE TO INCOMING RN.
--- NOTE | 2018-05-30 21:11 | NUR ---
RECEIVED PT SITTING ON THE EDGE OF THE BED AAOX4 NO ACUTE DISTRESS NOTED , PT DENY PAIN , LUNG SOUNDS DIMINISHED NO RESP DISTRESSS NOTED DRY COUGH NOTED, PT HAS AV SHUNT TO JAZZ WITH GOOD BRUIT/THRILL, HD TOMORROW . HL TO RFA INTACT FLUSHING WELL, TELE NU,LENA 14 SHOWS AFIB . CALL LIGHT WITHIN PT'S REACH ,WILL CON'T TO MONITOR AND ASSIST PT WITH CARE.
--- NOTE | 2018-05-31 | NUR ---
I HAVE REVIEWED THE DATA COLLECTION BY VFX ARTIST (NAME):DESMOND CRUMP ENTERED ON (DATE/TIME)05/30/182047. I CONCUR WITH THE DATA AND ANY EXCEPTIONS OR COMMENTS ARE LISTED BELOW:
--- NOTE | 2018-05-31 02:10 | NUR ---
PT'S IN BED WITH EYES CLODED, TELE AFIB HR 88.
[2018-05-31 06:15] VITALS: BP 119/53
--- NOTE | 2018-05-31 06:27 | NUR ---
NO CHANGES OF CONDITION NOTED , ALL DUE MEDS GIVEN NO REACTION NOTED, HL PATENT , TELE AFIB , PT;S SITTING ON THE EDGE OF THE BED IN NO DISTRESS .
[2018-05-31 06:39] LABS: BASOPHIL % 0.7 % (0-2); PLATELET COUNT 324 x10^3mcL (130-400)
[2018-05-31 06:40] LABS: RED CELL DISTRIBUTION WIDTH 19.8 % (11.5-14.5)
[2018-05-31 07:13] LABS: CALCIUM 9.6 mg/dL (8.5-10.1); CARBON DIOXIDE 25.5 mmol/L (21-32); POTASSIUM SERUM 5.3 mmol/L (3.5-5.1)
[2018-05-31 07:14] LABS: CREATININE SERUM 8.4 mg/dL (0.6-1.0)
--- NOTE | 2018-05-31 07:30 | NUR ---
RECEIVED PATIENT IN BED IN CONTACT ISO FOR C-DIFF. ALERT ORIENTED ABLE TO VERBALIZE NEEDS WELL. HL PATENT RT F/A. NO REDNESS OR SWELLING NOTED. RESP EVEN AND UNLABORED, LUNGS CLEAR ON ROOM AIR. LT BKA NOTED WELL HEALED SCAR. TELE 14 A-FIB. AV SHUNT LEFT F/A NOTED WITH GOOD BRUIT/THRILL. BUTTOCKS PINK Z-GUARD APPLIED. NO ACUTE DISTRESS NOTED, WILL CONTINUE TO MONITOR.
[2018-05-31 08:35] VITALS: BP 115/60
[2018-05-31 09:08] VITALS: BP 115/60
--- NOTE | 2018-05-31 09:59 | NUR ---
PATIENT IS IN BED C/O HAVING"GALLSTONE" PAIN 8/10 ON THE PAIN SCALE. PATIENT TO BE MEDICATED WITH TORADOL IV BY DES CHANDLER. WILL CONTINUE TO MONITOR.
--- NOTE | 2018-05-31 10:00 | NUR ---
PATIENT'S PLAN OF CARE WAS DISCUSSED AND REVIEWED WITH SCUTCHER TENDER:TEA CHUNG
--- NOTE | 2018-05-31 10:00 | NUR ---
I HAVE REVIEWED THE DATA COLLECTION BY MARIANNA (NAME):JENELLE CHUNG ENTERED ON (DATE/TIME):05/31/18 1000 am I CONCUR WITH THE DATA AND ANY EXCEPTIONS OR COMMENTS ARE LISTED BELOW:
[2018-05-31] MEDS ORDERED: NOVAPLUS VANCO125 MG PO (10:18)
[2018-05-31 10:50] VITALS: BP 115/60
[2018-05-31 11:46] VITALS: BP 129/56
--- NOTE | 2018-05-31 13:33 | NUR ---
PATIENT REMAINS IN BED. DIALSYSIS NURSE AT BEDSIDE TO START HD. PATIENT REMAINS IN ISO FOR C-DIFF. PER PATIENT THE TORADOL IV THAT WAS GIVEN EARLIER HELPED TO REDUCE HER GALLBLADDER PAIN TO 0/10 ON THE PAIN SCALE. NO ACUTE DISTRESS NOTED. WILL CONTINUE TO MONITOR.
--- NOTE | 2018-05-31 15:20 | NUR ---
HD REMAINS IN PROGRESS. PATIENT CONTINUES TO DENY ANY PAIN OR DISCOMFORT. WILL CONTINUE TO MONITOR.
--- NOTE | 2018-05-31 16:57 | NUR ---
HD COMPLETED AT THIS TIME. 1.3L OUT. PATIENT APPEARS TO HAVE TOLERATED WELL. PATIENT REMAINS IN BED, AWAKE, ALERT DENIES ANY PAIN OR DISCOMFORT. WILL CONTINUE TO MONITOR.
--- NOTE | 2018-05-31 17:03 | NUR ---
COULD NOT BE SEEN FOR PHYSICAL THERAPY SESSION DUE TO PATIENT ON DIALYSIS
--- NOTE | 2018-05-31 19:30 | NUR ---
RECEIVED PT FROM PREVIOUS SHIFT NURSE. PT AOX4. DENIES THORPE/DIZZINESS. TELE #14, AFIB WITH BBB, HR 124. DENIES CP/PRESSURE. PULSES PALPABLE, NO EDEMA NOTED. LUNG SOUNDS CLEAR, ON RA. DENIES SOB/DIFFICULTY BREATHING. BOWEL SOUNDS ACTIVE. ANEURIC. AV SHUNT TO JAZZ. GEN WEAKNESS. L. BKA, R. TOE AMPUTATION. IV TO RFA, INTACT AND PATENT. BED IN LOWEST POSITION. CALL LIGHT WITHIN REACH. WILL CONTINUE TO MONITOR.
[2018-05-31 20:49] VITALS: BP 110/24
--- NOTE | 2018-05-31 22:08 | NUR ---
PT C/O R SIDED FLANK PAIN 11/19. MEDICATED PER EMAR. WILL CONTINUE TO MONITOR.
--- NOTE | 2018-06-01 03:00 | NUR ---
PT RESTING IN BED. RR EVEN AND UNLABORED. NO ACUTE DISTRESS NOTED. CALL LIGHT WITHIN REACH. BED IN LOWEST POSITION. WILL CONTINUE TO MONITOR.
[2018-06-01 05:51] VITALS: BP 129/46
--- NOTE | 2018-06-01 07:10 | NUR ---
PT AWAKE, ALERT, ORIENTED, ABLE TO VERBALIZE NEEDS, SITTING AT SIDE OF BED. EFFORTLESS BREATHING ON ROOM AIR. DENIES ANY DISCOMFORT AT MOMENT. THERE IS A JAZZ AV SHUNT FOR HEMODIALYSIS BRUIT/THRILL PRESENT. RESTRICTED EXTREMITY PRECAUTION IN PLACE. IV PATENT, PRESENT TO RFA#22. BED IN LOWEST POSITION, CALL LIGHT WITHIN REACH.
--- NOTE | 2018-06-01 09:23 | NUR ---
PASSED MORNING MEDICATIONS, TOLERATED WELL. SHOWER ORDERED PER REQUEST. WILL CONTINUE TO MONITOR.
--- NOTE | 2018-06-01 09:25 | NUR ---
PASSED MORNING MEDICATIONS, AND MEDICATED FOR RUQ PAIN 8/10 POST MEAL. PT TOLERATED WELL. CALL LIGHT WITHIN REACH.
[2018-06-01 09:45] VITALS: BP 111/45
[2018-06-01 10:33] LABS: BASOPHIL % 0.2 % (0-2); PLATELET COUNT 369 x10^3mcL (130-400)
[2018-06-01 12:20] VITALS: BP 117/52; BP 133/62
[2018-06-01 12:59] VITALS: BP 111/45
--- NOTE | 2018-06-01 17:05 | NUR ---
WOUND CARE PROVIDED TO LEFT LOWER BUTTOCK, AND LEFT ABDOMINAL FOLD.
[2018-06-01 17:30] VITALS: BP 129/45
--- NOTE | 2018-06-01 18:10 | NUR ---
PT SITTING AT SIDE OF BED, DENIES ANY DISCOMFORT AT MOMENT. EFFORTLESS BREATHING ON ROOM AIR. DENIES CP, SOB. NO DIARRHEA DURING SHIFT. TOLERATING DINNER WELL. WOUND CARE PROVIDED AND PICTURES TAKEN AND DOCUMENTED. IV PATENT TO RFA #22. BED IN LOWEST POSITION, CALL LIGHT WITHIN REACH. AT BEDSIDE.
--- NOTE | 2018-06-01 19:40 | NUR ---
PT. AWAKE, ALERT, ORIENTED X4. DENIES HEADACHE OR DIZZINESS. FAMILY AT BEDSIDE. SPEECH CLEAR, CONVERSATION APPROPRIATE. BREATH SOUNDS CLEAR THROUGHOUT LUNG SHEN, RESP. EVEN, UNLABORED. NO SOB NOTED. PT. ON RA. ABD. SOFT AND ROUND, OBESE. DENIES ABD. PAIN AND NAUSEA. ABD FOLDS W/ SOME EXCORIATION. INTER DRY IN PLACE. LLE BKA, RLE TOES AMPUTATED. IV SITE INTACT. CALL LIGHT WITHIN REACH.
[2018-06-01 20:24] VITALS: BP 123/54
--- NOTE | 2018-06-01 20:25 | NUR ---
PT. C/O ABD. PAIN. REQUESTING PAIN MEDICATION. PAIN LEVEL 6/10. PRN TORADOL GIVEN. WILL MONITOR.
--- NOTE | 2018-06-02 02:47 | NUR ---
PT. W/ EYES CLOSED AMD HAVE BEEN SLEEPING/RESTING WELL. NO FURTHER C/O PAIN SINCE RECEIVING PRN PAIN MEDICATION. WILL CONTINUE TO MONITOR.
[2018-06-02 05:44] VITALS: BP 113/40
--- NOTE | 2018-06-02 06:44 | NUR ---
PT. C/O ABD. PAIN. PAIN LEVEL 6/10. PRN MORPHINE GIVEN. PAIN LEVEL DOWN TO 4/10. PT. DENIES NAUSEA. IV SITE REMAINS INTACT. WILL ENDORSE PT. CARE TO INCOMING NURSE.
[2018-06-02 09:00] VITALS: BP 120/48
[2018-06-02 09:18] LABS: PLATELET COUNT 325 x10^3mcL (130-400)
[2018-06-02 09:19] LABS: RED CELL DISTRIBUTION WIDTH 19.8 % (11.5-14.5)
[2018-06-02 09:29] LABS: CALCIUM 9.5 mg/dL (8.5-10.1); CARBON DIOXIDE 25.4 mmol/L (21-32)
[2018-06-02 09:42] LABS: CREATININE SERUM 7.7 mg/dL (0.6-1.0); POTASSIUM SERUM 5.6 mmol/L (3.5-5.1)
[2018-06-02 10:54] LABS: BAND NEUTROPHIL 14 % (0-10); BASOPHIL 0 % (0-2); MONOCYTE 5 % (0-7); SEGMENTED NEUTROPHILS 70 % (37-75)
[2018-06-02 10:56] LABS: ovalocyte/elliptocyte 1+; rbc morphology (normal/abnorm) ABNORMAL (NORMAL); target cell (codocyte) 1+; tear drop cell (dacryocyte) 1+
[2018-06-02 10:57] LABS: PLATELET MORPHOLOGY PLATELETS NORMAL; burr cell (echinocyte) 1+
--- NOTE | 2018-06-02 11:20 | NUR ---
STOOL SPECIMEN COLLECTED. SENT TO LAB
--- NOTE | 2018-06-02 12:25 | NUR ---
PT MEDICATED FOR NAUSEA. DIALYSIS TO INITIATE. BOOK SORTER AT BEDSIDE.
[2018-06-02 12:32] VITALS: BP 114/59
--- NOTE | 2018-06-02 14:43 | NUR ---
pATIENT COULD NOT PARTICIPATE ON PHYSICAL THERAPY SESSION SECONDARY TO DIALYSIS
[2018-06-02 17:22] VITALS: BP 98/60
--- NOTE | 2018-06-02 18:36 | NUR ---
PASSED AFTERNOON MEDICATIONS. PT AWAKE, ALERT, ORIENTED. DENIES ABDOMINAL PAIN AT MOMENT. NEW MEDICATION REGIMEN INITIATED PER DR'S ORDER. IV PATENT TO RFA#22. BED IN LOWEST POSITION, CALL LIGHT WITHIN REACH.
--- NOTE | 2018-06-02 19:30 | NUR ---
RECIEVED PATIENT AT START OF SHIFT AWAKE, A/O X4. CONTACT PRECAUTIONS IN PLACE FOR CDIFF. NO SOB ON RA LUNGS CTAB. ON TELE NUMBER 15, AFIB. PATIENT REPORTED FEELING NAUSEOUS. WILL MEDICATE WITH ZOFRAN PER EMAR. LAST BM WAS DIARRHEA IN THE AFTERNOON. ABDOMEN IS SOFT, BOWEL SOUNDS ACTIVE. PATIENT IS ANURIC, HAD HD TODAY. JAZZ AV SHUNT PATENT WITH BRUIT AND THRILL. PATIENT HAS GENERALIZED WEAKNESS. LEFT BKA AND R 1ST-3RD DIGITS ARE AMPUTATED. INTERDRY IN PLAE BEWTEEN ABDOMINAL FOLDS. SMALL DARK DISCOLORAION NOTED ON LEFT BUTTOX. BATCH STILL OPERATOR. PATIENT REPOSITINS SELF WITH EASE. IV SALINE LOCKED AND PATENT. BED LOCKED AND IN LOWEST POSITION. CALL LIGHT AND BEDSIDE TABLE WITHIN REACH. WILL CONTINUE TO MONITOR.
[2018-06-02 20:35] VITALS: BP 106/48
--- NOTE | 2018-06-02 21:00 | NUR ---
PATIENT REPORTED 7/10 ABDOMINAL PAIN. WILL MEDICATE WITH NORCO PER EMAR.
--- NOTE | 2018-06-02 22:05 | NUR ---
PATIENT IS CRYING AND REPORTING 10/10 RUQ ABDOMINAL PAIN. SHE STATED HER ABDOMINAL PAIN HAS NEVER BEEN THIS BAD BEFORE. ABDOMEN IS TENDER TO PALPATION AND IS FIRM AND DISTENDED. NEW VITALS WERE TAKEN, BP HAS INCREASED TO 140/97, HR 82, SATTING 94% ON RA, TEMP OF 98.6. DR. PEREA WAS PAGED TO ORDER MORPHINE AND TO ASSESS THE PATIENT. WILL CONTINUE TO MONITOR.
--- NOTE | 2018-06-02 22:37 | NUR ---
DR. PEREA ORDERED TORADOL. ADMINISTERED PER EMAR. WILL CONTINUE TO MONITOR PATIENT.
[2018-06-03] VITALS (7 sets, daily range): BP systolic 87–108; BP diastolic 30–59
--- NOTE | 2018-06-03 01:38 | NUR ---
PATIENT'S EYES ARE CLOSED, BREATHS EVEN AND REGULAR. WILL CONTINUE TO MONITOR.
--- NOTE | 2018-06-03 03:00 | NUR ---
PATIENT HAD EPISODE OF DIARRHEA. PATIENT CLEANED AND CHANGED. RESTING IN BED COMFORTBALEY.
--- NOTE | 2018-06-03 04:20 | NUR ---
PATIENT IS AWAKE AND REPORTING 7/10 ABDOMINAL PAIN. WILL MEDICATE WITH NORCO PER EMAR.
--- NOTE | 2018-06-03 06:00 | NUR ---
PATIENT HAD A SECOND EPISODE OF DIARRHEA. PATIENT IS NOW CLEAN AND RESTING IN BED. PATIENT REPORTING CONTINUED 10/10 PAIN TO HER RUQ. PATIENT ASKED IF SHE COULD ELECT TO HAVE HER GALL BLADDER REMOVED DURING HER HOSPITAL STAY BACAUSE SHE CANNOT TAKE THE PAIN. PATIENT ENCOURAGED TO DISCUSS HER SURGICAL OPTIONS WITH THE DOCTOR DURING ROUNDS TODAY. TYLENOL ADMINISTERED PER EMAR. NO FURTHER SIGNIFICANT EVENTS. WILL ENDORSE CARE TO THE MORNING NURSE.
[2018-06-03 06:47] LABS: PLATELET COUNT 313 x10^3mcL (130-400)
[2018-06-03 06:56] LABS: CALCIUM 9.5 mg/dL (8.5-10.1); CARBON DIOXIDE 26.8 mmol/L (21-32); POTASSIUM SERUM 5.1 mmol/L (3.5-5.1)
[2018-06-03 07:01] LABS: CREATININE SERUM 5.5 mg/dL (0.6-1.0)
[2018-06-03 07:04] LABS: RED CELL DISTRIBUTION WIDTH 20.2 % (11.5-14.5)
--- NOTE | 2018-06-03 07:30 | NUR ---
PATIENT IS IN BED IN CONTACT ISOLATION FOR C-DIFF. AWAKE, ALERT AND ORIENTED. C/O FEELING WEAK AND OF RT SIDED ABD PAIN THAT RADIATES TO HER BACK. C/O NOT HAVING ANY APPETITE. HL RT F/A PATENT, FLUSHED WELL. NO S/S OF ANY INFILTRATION NOTED. NO DIARRHEA AT THIS TIME. RESP EVEN AND UNLABORED, TELE 14 AFIB HR 96. TEARFUL THIS AM. AV SHUNT LEFT UPPER ARM WITH GOOD BRUIT AND THRILL. WILL CONTINUE TO MONITOR.
--- NOTE | 2018-06-03 07:30 | NUR ---
PATIENT'S PLAN OF CARE WAS DISCUSSED AND REVIEWED WITH DIRECTOR OF VENDOR MANAGEMENT: TEA CHUNG
--- NOTE | 2018-06-03 09:52 | NUR ---
ISABELLA OLIVA NOTIFIED AT THIS TIME OF PATIENT'S B/P OF 89/34 AND WBC 31.8. NEW ORDER RECEIVED. WILL CONTINUE TO MONITOR.
--- NOTE | 2018-06-03 10:13 | NUR ---
NS BOLUS OF 500ML STARTED ORDERED AT THIS TIME. WILL CONTINUE TO MONITOR.
[2018-06-03 11:29] LABS: BAND NEUTROPHIL 13 % (0-10); BASOPHIL 0 % (0-2); MONOCYTE 6 % (0-7); SEGMENTED NEUTROPHILS 69 % (37-75)
[2018-06-03 11:30] LABS: rbc morphology (normal/abnorm) ABNORMAL (NORMAL)
[2018-06-03 11:31] LABS: ovalocyte/elliptocyte 1+; target cell (codocyte) 1+
[2018-06-03 11:32] LABS: burr cell (echinocyte) 1+; tear drop cell (dacryocyte) 1+
--- NOTE | 2018-06-03 12:49 | NUR ---
PATIENT C/O 01/19 ABD PAIN RADIATING TO BACK. MEDICATED WITH NORCO PO AT THIS TIME. WILL CONTINUE TO MONITOR.
--- NOTE | 2018-06-03 12:56 | NUR ---
GIS PROFESSOR FABIO HARRIS NOTIFIED OF LACTIC ACID OF 2.6. ORDER TO REPEAT IN 4 HRS.
--- NOTE | 2018-06-03 13:47 | NUR ---
PATIENT REMAINS IN BED APPEARS TO BE RESTING WELL. AROUSED EASILY TO NAME, AND PER PATIENT HER PAIN LEVEL IS DECREASING. WILL CONTINUE TO MONITOR. IVF INFUSING WELL ORDERED.
--- NOTE | 2018-06-03 16:29 | NUR ---
ANA TABLET MAKING MACHINE OPERATOR HELPER NOTIFIED OF PATIENT'S LACTIC ACID OF 2.7 AND OF B/P 104/33 HR 91 AT THIS TIME. NO NEW ORDERS RECIEVED.
--- NOTE | 2018-06-03 18:10 | NUR ---
I HAVE REVIEWED THE DATA COLLECTION BY MARIANNA (NAME): TEA CHUNG ENTERED ON (DATE/TIME): 06/03/18 [id number] I CONCUR WITH THE DATA AND ANY EXCEPTIONS OR COMMENTS ARE LISTED BELOW:
--- NOTE | 2018-06-03 18:35 | NUR ---
PATIENT REMAINS IN BED, IV SITE LEAKING. ATTEMPTED TO RETART NEW IV BY MYSELF AND CECILIA CHANDLER. UNABLE TO RESTART WILL ENDORSE TO NOC NURSE. PATIENT TO HAVE CT ABD WITH ORAL CONTRAST, TAKING CONTRAST SLOWLY DID HAVE EMESIS. FULL SERVICE SUPERVISOR INFORMED. PATIENT CONTINUES TO HAVE LOOSE BM'S. C/O ABD PAIN. WILL CONTINUE TO MONITOR.
--- NOTE | 2018-06-03 19:30 | NUR ---
PATIENT RECEIVED AWAKE, ALERT, ORIENTED X4 IN BED. RESPIRATION EVEN AND UNLABORED, ON ROOM AIR, ON RT PROTOCOL. NO IV ACCESS AT THIS TIME. C/O NAUSEA AND ABDOMINAL PAIN, PS 10/10. ANURIC, HEMODIALYSIS PATIENT (TTHS), AV SHUNT TO LUE. GENERALIZED WEAKNESS, LEFT BKA, 1ST THREE DIGITS RT FOOT AMPUTATED. ABDOMINAL FOLDS PINK, LT BUTTOCKS PINK. ON CONTACT ISOLATION FOR C DIFF. ON TELE #14, AFIB. WILL CONTINUE TO MONITOR.
--- NOTE | 2018-06-03 20:20 | NUR ---
RE-INSERTED A NEW IV SIT ON THE RIGHT HAND.
--- NOTE | 2018-06-03 20:36 | NUR ---
PATIENT COMPLAINED OF NAUSEA. ZOFRAN 4 MG IVP GIVEN ORDERED. WILL CONTINUE TO MONITOR.
--- NOTE | 2018-06-03 22:00 | NUR ---
PATIENT WENT DOWN TO CAT SCAN FOR CT OF ABDOMEN VIA BED.
--- NOTE | 2018-06-03 22:07 | NUR ---
PATIENT COMPLAINED OF ABDOMINAL PAIN, PS 10/10. MEDICATED WITH NORCO 7.5/325 MG PO ORDERED. WILL CONTINUE TO MONITOR.
--- NOTE | 2018-06-03 22:20 | NUR ---
PATIENT CAME BACK FROM CT SCAN.
--- NOTE | 2018-06-04 00:20 | NUR ---
PATIENT VERBALIZED SHE DOESN'T FEEL GOOD, "I NEED MY OXYGEN," "I'M IN PAIN." PATIENT PLACED ON O2 4L PER NASAL CANNULA. HR 110'S-120'S, SBP 80'S, RR 18. DR PEREA MADE AWARE.
--- NOTE | 2018-06-04 00:30 | NUR ---
DR PEREA CAME TO ASSESS PATIENT.
--- NOTE | 2018-06-04 01:35 | NUR ---
FRANSICO GIL WAS IN THE ROOM CLEANING THE PATIENT WHEN PATIENT BECAME SUDDENLY UNRESPONSIVE. PATIENT PALE LOOKING, MINIMALLY RESPONSIVE TO TACTILE STIMULI. LATEST BP 100-80'S SYSTOLIC, HR 110-150'S- AFIB, RR 18, O2 SAT 90-93% ON O2 4L PER NASAL CANNULA. RAPID RESPONSE WAS CALLED.
--- NOTE | 2018-06-04 01:45 | NUR ---
PATIENT REMAINS TO BE MINIMALLY RESPONSIVE TO TACTILE STIMULI. CODE SAMANTHA WAS CALLED. PATIENT PLACED ON A NONREBREATHER 100%. LATEST BLOOD SUGAR 91 MG/DL. STARTED A NEW IV SITE ON THE RIGHT ANTECUBITAL AREA. LATEST BP 80/38, HR 150'S, RR 18, O2 SAT 91%.
--- NOTE | 2018-06-04 02:00 | NUR ---
PATIENT RESPONSIVE, ANSWERING QUESTIONS ON NONREBREATHER 100% CXRAY WAS DONE. ABG WAS DONE. EKG WAS DONE. BLOOD WORKS WAS DRAWN.
--- NOTE | 2018-06-04 02:10 | NUR ---
PATIENT WAS TRANSFERRED TO ICU 4 ON PAINT MIXER MACHINE AND NONREBREATHER 100% REPORT GIVEN TO CHRISTI CHANDLER.
--- NOTE | 2018-06-04 02:15 | NUR ---
RECEIVED PT FROM [facility] VIA [facility]. PRESCHOOL AIDE IN PLACE SHOWING A. FIB WITH HR 122. PT PUT ON NON REBREATHER MASK AT 15L. VS T 99.2, BP 93/76, RR26, O2 SAT 96%, WT 91.2KG. SBP DROPPED TO THE 60'S AND PT GIVEN NS BOLUS OF 250ML. PT BREATHING SHALLOW AND LABORED. LUNG SOUNDS CLEAR TO BILATERAL UPPER LOBES AND DIMINISHED TO BILATERAL LOWER LOBES. PT STATES NO PAIN AT THIS TIME.
--- NOTE | 2018-06-04 02:40 | NUR ---
DR THOMAS CAME TO SEE PATIENT, RESULT OF THE CT ABD WITH ORAL CONTRAST WAS RELAYED, VANCOMYCIN ENEMA 500 MG IN 100 ML SALINE Q6 HOURS WAS ORDERED.
--- NOTE | 2018-06-04 03:25 | NUR ---
DR. THOMAS AT BEDSIDE ASSESSING PT. NEW ORDER FOR VANCOMYCIN ENEMA 500MG IN 100ML OF NS. ORDER CARRIED OUT.
--- NOTE | 2018-06-04 03:50 | NUR ---
REPORTED LOW BP 60/41 (51) TO DR. PEREA, WITH ORDER TO INCREASE IV RATE TO 100 ML/HR.
--- NOTE | 2018-06-04 03:55 | NUR ---
DR THOMAS WROTE AN ORDER FOR VANCOMYCIN ENEMA 500 MG IN 100ML SALINE Q6 HOURS AFTER HE WAS MADE AWARE OF THE RESULT OF THE CT ABD WITH ORAL CONTRAST.
--- NOTE | 2018-06-04 04:45 | NUR ---
0450: PT FOUND UNRESPONSIVE, UNABLE TO AROUSE. PULSE OX UNOBTAINABLE. DR PEREA AND DR TRIMBLE CALLED AT THIS TIME. 0500: DR WILLIS AT BEDSIDE TO INTUBATE. 0507: ETOMIDATE 20MG GIVEN IVP 0510: INTUBATION SUCCESSFUL. ETT 8.0 AT 22CM LL.
--- NOTE | 2018-06-04 05:10 | NUR ---
VENT ON VCV-AC MODE WITH SETTINGS AT FIO2 100%, R 16, VT 500, PEEP 5.
[2018-06-04 05:15] VITALS: BP 63/44
[2018-06-04 05:28] LABS: PLATELET COUNT 281 x10^3mcL (130-400)
[2018-06-04 05:36] LABS: RED CELL DISTRIBUTION WIDTH 20.5 % (11.5-14.5)
[2018-06-04 05:41] LABS: CALCIUM 9.9 mg/dL (8.5-10.1); CARBON DIOXIDE 15.4 mmol/L (21-32); MAGNESIUM 1.9 mg/dL (1.8-2.4)
--- NOTE | 2018-06-04 05:42 | NUR ---
CHEST X-RAY BEING DONE AT BEDSIDE.
[2018-06-04 05:50] LABS: BAND NEUTROPHIL 19 % (0-10); METAMYELOCTE 2 % (0-2); MONOCYTE 5 % (0-7); SEGMENTED NEUTROPHILS 63 % (37-75)
[2018-06-04 05:53] LABS: POTASSIUM SERUM 5.8 mmol/L (3.5-5.1)
[2018-06-04 05:54] LABS: CREATININE SERUM 6.7 mg/dL (0.6-1.0)
[2018-06-04 05:56] LABS: rbc morphology (normal/abnorm) ABNORMAL (NORMAL)
[2018-06-04 05:57] LABS: acanthocyte (spur cell) 2+; ovalocyte/elliptocyte 1+; target cell (codocyte) 1+
--- NOTE | 2018-06-04 06:03 | NUR ---
MAP 54. LEVOPHED INITIATED AT 5MCG/MIN.
--- NOTE | 2018-06-04 06:11 | NUR ---
MAP 60. LEVOPHED INCREASED TO 7MCG/MIN.
--- NOTE | 2018-06-04 06:12 | NUR ---
ATTEMPTED ABG POST INTUBATION X3 UNABLE TO ACQUIRE SAMPLE. RN AWARE, WILL HAVE ANOTHER RT TRY.
--- NOTE | 2018-06-04 07:28 | NUR ---
DR. HINDS AND MYSELF SPEAKING WITH PT'S AND UPDATED HIM ON PT'S CURRENT CONDITION AND PLAN OF CARE. INFORMED OF NEED FOR CENTRAL LINE INSERTION, ALL RISK AND BENEFITS EXPLAINED. OBTAINED SIGNED CONSENT AT THIS TIME AND PLACED IN CHART.
--- NOTE | 2018-06-04 07:30 | NUR ---
PATIENT IS IN BED RESTING, BED IS TO THE LOWEST POSITION. PATIENT IS VENTED ON AC MODE WITH A TIDAL VOLUME OF 500, A RATE OF 14, A PEAK OF 60 AND A PEEP OF 5. PATIENT IS BREATHING ADEQUATELY, NO SIGNS OF RESPIRATORY DISTRESS. OGT IN PLACE. PSYCH COORDINATOR IN PLACE, ATRIAL FIBRILLATION. ABDOMEN IS ROUND AND SOFT. 2 BOWEL MOVEMENTS PER MANAGER ER. PATIENT HAS NOT URINATED. NO CURRENT IV ACCESS. PATIENT IS UNABLE TO FOLLOW COMMAND, AND IS NOT ALERT AND ORIENTED. PRESSURE POINTS ARE OFFLOADED. WILL CONTINUE TO MONITOR.
--- NOTE | 2018-06-04 07:30 | NUR ---
DR. ELAINE AT BEDSIDE TO INSERT IO TO RIGHT [place]URSING STAFF UNABLE TO ESTABLISH PERIPHERIAL IV. PT TOLERATED WELL.
--- NOTE | 2018-06-04 07:40 | NUR ---
TIME OUT FOR CENTRAL LINE INSERTION AND PLACEMENT PERFORMED AT THIS TIME. MYSELF, US TECH AND DR. WANG ALL IN AGREEMENT.
--- NOTE | 2018-06-04 07:43 | NUR ---
REPORT GIVEN BY GERALDINE BARRAZA. ALL QUESTIONS ADDRESSED, WILL ENDORSE CARE.
--- NOTE | 2018-06-04 07:49 | NUR ---
GAVE REPORT TO MARIA EUGENIA CHANDLER. ALL QUESTIONS AND CONCERNS ANSWERED.
[2018-06-04 07:59] LABS: PHOSPHOROUS 9.5 mg/dL (2.5-4.9)
[2018-06-04 08:00] VITALS: BP 82/45
--- NOTE | 2018-06-04 08:27 | NUR ---
BS CHECKED, 33, REPEAT 44. D50 GIVEN.
[2018-06-04 08:49] VITALS: BP 125/93
--- NOTE | 2018-06-04 09:00 | NUR ---
PATIENT NOTED WITH NO PURPOSEFUL MOVEMENTS, SEDATED ON PROPOFOL WITH RSS OF 4. RESTRAINTS REMOVED. WILL CONTINUE TO MONITOR.
--- NOTE | 2018-06-04 09:01 | NUR ---
POST ABG COLLECTION AND RESULTS, FIO2 TITRATED TO 60%.
--- NOTE | 2018-06-04 09:16 | NUR ---
TWO SILVER RINGS AND A BRACELET WERE REMOVED FROM THE PATIENT, AND GIVEN TO PATIENTS SONAUGUSTIN.
--- NOTE | 2018-06-04 09:59 | NUR ---
MESSAGE LEFT FOR [facility], PT TO HAVE DIALYSIS TODAY. AWAITING CALL BACK CONFIRMATION.
--- NOTE | 2018-06-04 10:00 | NUR ---
INFORMED DR. WANG OF POSSIBLE EXTRAVASATION TO RIGHT WRIST PERIPHERAL IV, K+ 5.8, AND INCREASED PHOS. STS HE WILL PLACE ORDERS
--- NOTE | 2018-06-04 10:15 | NUR ---
LOW BP READING ON MONITOR. LEVOPHED TITRATED FROM 15 MCG/MIN TO 20 MCG/MIN.
--- NOTE | 2018-06-04 10:25 | NUR ---
UNABLE TO OBTAIN BP READING FROM MONITOR. MANUAL BP CUFF TAKEN. 50/20. LEVOPHED TITRATED FROM 20 MCG/MIN TO 30 MCG/MIN R/T PT INSTABILITY. DR. WANG PAGED AND MADE AWARE.
[2018-06-04 10:27] VITALS: BP 94/49
--- NOTE | 2018-06-04 10:27 | NUR ---
SPO2 100 ON FIO2 60%, DECREASED FIO2 TO 50%.
--- NOTE | 2018-06-04 11:40 | NUR ---
BS CHECK 50 AND 41. D50 ADMINISTERED PER PROTOCOL.
--- NOTE | 2018-06-04 11:40 | NUR ---
HD AT BEDSIDE. PT TOO UNSTABLE FOR DIALYIS AT THIS TIME. DR. WANG STS DIALYSIS WILL BE HELD
--- NOTE | 2018-06-04 11:52 | NUR ---
AT PT BEDSIDE FOR ASSESSMENT. NOTED PT'S HR BECOMING BRADYCARDIC, UNABLE TO OBTAIN BP READING. PALPATED FOR PULSE AND DOPPLER USED, NO PULSE NOTED. CODE SAMANTHA CALLED (SEE CODE BLUE SHEET FOR FURTHER DETAILS). CPR INITIATED.
--- NOTE | 2018-06-04 12:32 | NUR ---
[employer]IONAL DEDICATED TRUCK DRIVER, LAMONTE Gore AWARE OF PATIENT .
--- NOTE | 2018-06-04 12:32 | NUR ---
CODE CALLED. PT PRONOUNCED BY DR. Clemente HERNANDEZ.
--- NOTE | 2018-06-04 12:46 | NUR ---
CALLED ADMITTING DEPARTMENT AND SPOKE WITH ARCADIO REGARDING PATIENT .
--- NOTE | 2018-06-04 12:50 | NUR ---
SPOKE WITH NABIL, PT'S SISTER, PROVIDED UPDATES. SISTER VERBALIZES UNDERSTANDING.
--- NOTE | 2018-06-04 12:58 | NUR ---
CALLED [facility] REGARDING PATIENTS .
--- NOTE | 2018-06-04 13:04 | NUR ---
SPOKE WITH KAYLA FROM [employer] REGARDING PATIENTS .
--- NOTE | 2018-06-04 13:46 | NUR ---
PATIENTS FOUND PATIENTS BELONGINGS, SUCH PATIENTS PHONE IN THE PATIENTS ROOM. FIRST BEATER, FERNANDO NOTIFIED.
--- NOTE | 2018-06-04 14:58 | NUR ---
SPOKE WITH AMITA, [facility]. BODY IS RELEASED AT THIS TIME. PT NOT CANDIDATE FOR [employer]GAN DONATION. [id number]
--- NOTE | 2018-06-04 15:25 | NUR ---
DR. HINDS IN UNIT TO SPEAK WITH PT'S FAMILY THEY HAD ADDITIONAL QUESTIONS IN REGARDS TO EVENTS. ALL QUESTIONS AND CONCERNS ADDRESSED AT THIS.
== END 2018-06-04 17:45 | disposition expired | DRG 371 ==
LOC: ED 22:58 → DU 05-21 05:01 → IC 06-04 02:14
PROVIDERS: Emergency Medicine; Family Medicine; Internal Medicine Gastroenterology; ADMIT Internal Medicine
PROC: 5A1D70Z Performance of Urinary Filtration, Intermittent, Less than 6 Hours Per Day (ICD-10-PCS; 2018-05-21)
PROC: 5A1935Z Respiratory Ventilation, Less than 24 Consecutive Hours (ICD-10-PCS; principal; 2018-06-04)
PROC: 0BH17EZ Insertion of Endotracheal Airway into Trachea, Via Natural or Artificial Opening (ICD-10-PCS; 2018-06-04)
PROC: 5A12012 Performance of Cardiac Output, Single, Manual (ICD-10-PCS; 2018-06-04)
DX: A04.72 Enterocolitis due to Clostridium difficile, not specified as recurrent (principal); N18.6 End stage renal disease; A41.9 Sepsis, unspecified organism; J96.00 Acute respiratory failure, unspecified whether with hypoxia or hypercapnia; R65.21 Severe sepsis with septic shock; I12.0 Hypertensive chronic kidney disease with stage 5 chronic kidney disease or end stage renal disease; J98.11 Atelectasis; E87.2 Acidosis; E86.0 Dehydration; B37.3 Candidiasis of vulva and vagina; I49.01 Ventricular fibrillation; E87.5 Hyperkalemia; E11.65 Type 2 diabetes mellitus with hyperglycemia; E11.22 Type 2 diabetes mellitus with diabetic chronic kidney disease; E11.42 Type 2 diabetes mellitus with diabetic polyneuropathy; E11.51 Type 2 diabetes mellitus with diabetic peripheral angiopathy without gangrene; I48.91 Unspecified atrial fibrillation; D63.1 Anemia in chronic kidney disease; E78.5 Hyperlipidemia, unspecified; E66.9 Obesity, unspecified; Z68.33 Body mass index [BMI] 33.0-33.9, adult; Z99.2 Dependence on renal dialysis; Z89.512 Acquired absence of left leg below knee; Z79.84 Long term (current) use of oral hypoglycemic drugs; Z79.01 Long term (current) use of anticoagulants; Z89.411 Acquired absence of right great toe; Z89.421 Acquired absence of other right toe(s)
CPT/HCPCS: 36556; 36600; 78226; 82962; 83880; 84439; 97110-GP; A4628; A9537; J0171; J0696; J1642; J1815; J1885; J2001; J2060; J2250; J2270; J2370; J2405; J2543; J2550; J2704; J3105; J3490; J7030; J7040; J7050; J7060; J7620; P9047; Q0092; Q9966